=== PATIENT | female | born 1935 | race Caucasian/White ===

== ENCOUNTER 2017-09-19 15:00 | Outpatient (RCR) | payer MEDICARE, SELFPAY | END 2017-09-26 | LOC: PT 15:00 | PROVIDERS: PCP Internal Medicine; Visit Provider Internal Medicine | DX: M54.2 Cervicalgia (principal); M79.601 Pain in right arm | CPT/HCPCS: G8978; G8979; G8980; 97010; 97012; 97014; 97035; 97110; 97162; G0283 ==

== ENCOUNTER → 2017-12-15 09:49 | Outpatient (POV) | payer MEDICARE, SELFPAY | PROVIDERS: Family Provider Internal Medicine; PCP Internal Medicine; Visit Provider Specialist | DX: M79.641 Pain in right hand (principal); M79.601 Pain in right arm | CPT/HCPCS: 95886; 95908 ==

== ENCOUNTER → 2018-05-25 14:41 | Outpatient (POV) | payer MEDICARE, SELFPAY | PROVIDERS: Visit Provider Nurse Practitioner Acute Care | DX: Z00.00 Encounter for general adult medical examination without abnormal findings (principal) ==

== ENCOUNTER → 2018-08-31 13:57 | Outpatient (POV) | payer MEDICARE, SELFPAY | PROVIDERS: Visit Provider Nurse Practitioner Acute Care | DX: Z00.00 Encounter for general adult medical examination without abnormal findings (principal) ==

== ENCOUNTER → 2018-09-07 13:38 | Outpatient (CLI) | payer MEDICARE, SELFPAY ==
--- NOTE | 2018-09-07 13:40 | MR_ITS ---
MR cervical spine wo con, MR 3-d myelogram/MRCP HISTORY: PT states neck pain, RT arm pain, numbness and tingling X 2-3 Months. PT also states back pain. ITS.REASON: NECK PAIN, BACK PAIN ORDERING PHYSICIAN: Kimani Jensen PATIENT AGE: 82 years Comparison: X-RAY 08/25/17 TECHNIQUE: Standard multiplanar multiecho sequences are performed without contrast. 3-D MIP and myelographic images are also rendered and reviewed FINDINGS: Nonspecific increased T2 signal is present in the ijeoma and midbrain and may be related to ischemic gliotic change from microvascular disease. MRI of the brain made for further evaluation if clinically warranted. The craniocervical junction has an unremarkable appearance. There is slight reversal of the upper cervical lordosis. C2-C3: Unremarkable. C3-C4: Degenerative disc disease with mild anterolisthesis of C3 of 3 mm with bulging disc slightly eccentric toward the left with mild left lateral recess narrowing with mild bilateral foraminal narrowing. C4-C5: Degenerative disc disease with bulging disc abutting the anterior aspect of the cord with very minimal cord flattening anteriorly. Anterior bulging discs/disc osteophyte complex also noted. There is mild narrowing of the canal is 11 mm with mild bilateral foraminal narrowing C5-C6: Degenerative disc disease with mild bulging disc. Mild bilateral foraminal narrowing C6-C7: Degenerative disc disease with mild bulging disc and a small left paracentral disc protrusion and minimal right paracentral/foraminal. Disc protrusion without impingement. C7-T1: Mild degenerative disc disease. IMPRESSION: 1. Multilevel cervical spondylosis with degenerative disc disease and bulging discs. Please above for detailed description at each level. Borderline narrowing of the canal noted at C4-C5 with minimal anterior flattening of the cord from the bulging disc 2. C3-C4: Degenerative disc disease with mild anterolisthesis of C3 of 3 mm with bulging disc slightly eccentric toward the left with mild left lateral recess narrowing with mild bilateral foraminal narrowing. 3. C4-C5: Degenerative disc disease with bulging disc abutting the anterior aspect of the cord with very minimal cord flattening anteriorly. Anterior bulging discs/disc osteophyte complex also noted. There is mild narrowing of the canal at 11 mm with mild bilateral foraminal narrowing 4. C6-C7: Degenerative disc disease with mild bulging disc and a small left paracentral disc protrusion and minimal right paracentral/foraminal. Disc protrusion without impingement 5. Suspect ischemic gliotic change of the ijeoma and midbrain IMPRESSION:
== END ==
PROVIDERS: PCP Internal Medicine; Visit Provider Internal Medicine
DX: M54.2 Cervicalgia (principal); M54.5 Low back pain
CPT/HCPCS: 72141; 76376

== ENCOUNTER → 2019-02-02 14:57 | Outpatient (CLI) | payer MEDICARE, SELFPAY ==
--- NOTE | 2019-02-02 15:02 | CT_ITS ---
CT head/brain wo con HISTORY: ITS.REASON: DIZZINESS, SEGAL ORDERING PHYSICIAN: Kimani Jensen PATIENT AGE: 83 years COMPARISON: None TECHNIQUE: Axial images obtained without contrast. Brain and bone windows reviewed. All CT scans at the facility use one or more dose reduction, viz: automated exposure control, ma/kV adjustment per patient size (including targeted exams where dose is matched to indication, i.e. head), or iterative reconstruction technique. FINDINGS: No midline shift, mass effect, intracranial hemorrhage, hydrocephalus, or extra-axial fluid collection is evident. There is mild generalized atrophy. There are low-density changes in the periventricular regions and within the ijeoma consistent with ischemic gliotic change from microvascular disease. There is ectasia of the right carotid artery with some lobulation at the bifurcation of the carotid. A small aneurysm here cannot be excluded. This measures approximately 7 x 5 mm. This now represent tortuosity and ectasia of the carotid bifurcation is well. The calvarium has an unremarkable appearance. No mastoid effusion. No sinus air-fluid levels.. IMPRESSION: 1. No acute intracranial findings. 2. Mild atrophy with periventricular ischemic and pontine ischemic gliotic change 3. Possible aneurysm of the bifurcation of the right carotid artery. CT angiography may be of further value if the patient's renal status permits. An alternative would be MR angiography if the patient is MRI compatible
== END ==
PROVIDERS: PCP Internal Medicine; Visit Provider Internal Medicine
DX: R51 Headache (principal); R42 Dizziness and giddiness
CPT/HCPCS: 70450

== ENCOUNTER → 2019-02-15 09:25 | Outpatient (CLI) | payer MEDICARE, SELFPAY ==
--- NOTE | 2019-02-15 09:36 | CT_ITS ---
CT angio neck INDICATION: Possible aneurysm, abnormal head CT ITS.REASON: DIZZINES, VISION LOSS ORDERING PHYSICIAN: Kimani Jensen PATIENT AGE: 83 years COMPARISON: None TECHNIQUE: Axial images are obtained without contrast. Sagittal and coronal reformatted images are reviewed as well. All CT scans at the facility use one or more dose reduction, viz: automated exposure control, ma/kV adjustment per patient size (including targeted exams where dose is matched to indication, i.e. head), or iterative reconstruction technique. FINDINGS: 11 mm isodense nodule involves the left lobe of the thyroid gland with other smaller nodules also noted. There appears to been a prior right thyroidectomy The aortic arch is an unremarkable appearance. Coronary artery calcifications are present. Tortuosity of the great vessels but no significant stenosis evident. The right internal carotid artery is located anterior to the central aspect of the cervical spine within the central aspect of the retropharynx the left internal carotid artery is also deviated medially but not quite as central as the right side. No stenotic lesions are evident. There is some mild dilatation and of the cavernous and suprasellar portion portion of the right internal carotid artery with some mild tortuosity of the suprasellar portion accounting for the abnormality noted on the CT scan.. No focal aneurysm however is evident. The vertebral arteries have an unremarkable appearance. Upper gastric images show scattered groundglass patchy density in the upper lobes nonspecific. There are degenerative changes of the cervical spine. IMPRESSION: 1. No evidence of significant stenosis of the carotid arteries. 2. 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 3. No aneurysms AVMs or other significant anomalies evident
--- NOTE | 2019-02-15 09:36 | CT_ITS ---
CT angio head INDICATION: Possible aneurysm noted on recent CT scan ITS.REASON: DIZZINES, VISION LOSS ORDERING PHYSICIAN: Kimani Jensen PATIENT AGE: 83 years COMPARISON: None TECHNIQUE: Axial images are obtained following the intravenous administration of 100 mL's Optiray 350 contrast. Sagittal and coronal reformatted images are reviewed as well. All CT scans at the facility use one or more dose reduction, viz: automated exposure control, ma/kV adjustment per patient size (including targeted exams where dose is matched to indication, i.e. head), or iterative reconstruction technique. FINDINGS: No aneurysm, arteriovenous malformation, or major intracranial occlusive process is evident. There is persistent origin of the right posterior cerebral artery as a normal variant. There is minimal ectasia and tortuosity of the cavernous and suprasellar portion of the right internal carotid artery accounting for the abnormality noted on CT scan. No aneurysm however is evident. IMPRESSION: Negative CT angiogram of the brain. No aneurysm apparent
[2019-02-15 09:44] LABS: Blood Urea Nitrogen 8 mg/dL (7-18); Creatinine,Serum 0.79 mg/dL (0.55-1.02); Estimated Glomerular Filt Rate 70 ml/min (>60); GFR (African American) 85 ML/MIN (>60)
== END ==
PROVIDERS: Visit Provider Internal Medicine
DX: R42 Dizziness and giddiness (principal); H54.7 Unspecified visual loss
CPT/HCPCS: 36415; 70496; 70498; 82565; 84520; Q9967

== ENCOUNTER → 2019-06-25 15:20 | Outpatient (CLI) | payer MEDICARE, SELFPAY ==
--- NOTE | 2019-06-25 15:34 | XR_ITS ---
PROCEDURE: XR FOREARM RT 2V CLINICAL INDICATION: RT SHOULDER PAIN,RT ARM PAIN COMPARISON: XR HUMERUS RT from 06/25/2019 FINDINGS: Osteoarthritic changes are present at the radial scaphoid joint. There is chondrocalcinosis of the triangular fibrocartilage of the wrist. Periarticular calcification is present along the dorsal aspect of the radiocarpal joint and along the anterior aspect of the hamate and anterior to the scaphoid. Hypertrophic changes are present along the neck of the radius with osteoarthritic changes of the elbow joint. Subarticular cystic changes are present at the humeral head with cortical regularity of the greater tuberosity. These findings may be seen with rotator cuff disease. No acute fracture or dislocation. No lytic or blastic change. IMPRESSION: Degenerative changes as described above Dictated by: Malik Doshi MD 06/25/2019 16:18 Electronically signed by Malik Doshi MD in [place] 06/25/2019 16:18
--- NOTE | 2019-06-25 15:34 | XR_ITS ---
PROCEDURE: XR SHOULDER RT MIN 2V CLINICAL INDICATION: RT SHOULDER PAIN,RT ARM PAIN COMPARISON: No exams were available for comparison FINDINGS: There are osteoarthritic changes of the acromioclavicular joint with periarticular calcification superiorly and may be due to partially calcified pannus. Subarticular cystic changes are present involving the humeral head with irregularity of the greater tuberosity. This may be seen with chronic rotator cuff disease. No fracture or dislocation. No lytic or blastic changes. IMPRESSION: Degenerative changes as described above, no acute finding Dictated by: Malik Doshi MD 06/25/2019 16:19 Electronically signed by Malik Doshi MD in [facility] 06/25/2019 16:19
== END ==
PROVIDERS: PCP Internal Medicine; Visit Provider Internal Medicine
DX: M25.511 Pain in right shoulder (principal); M79.601 Pain in right arm
CPT/HCPCS: 73030; 73060; 73090

== ENCOUNTER → 2019-07-26 11:45 | Outpatient (CLI) | payer MEDICARE, SELFPAY ==
--- NOTE | 2019-07-26 12:11 | XR_ITS ---
PROCEDURE: XR CHEST 2V CLINICAL HISTORY: DYPSNEA ON EXCERTION, Hemoptysis COMPARISON: CXR CHEST(2 VIEWS-NOT PORTABLE) from 11/17/2015 CXR2 CHEST-AP VIEW ONLY from 02/20/2016 FINDINGS: The cardiomediastinal silhouette and pulmonary vascularity are within normal limits. Calcified nodes are present in the mediastinum. Lungs are clear Degenerative change thoracic spine with lower thoracic curvature convex left in thoracic kyphosis. Postsurgical changes lumbar spine. IMPRESSION: No change with no acute finding Dictated by: Malik Doshi MD 07/26/2019 12:32 Electronically signed by Malik Doshi MD in [place] 07/26/2019 12:32
== END ==
PROVIDERS: PCP Internal Medicine; Visit Provider Internal Medicine
DX: R06.09 Other forms of dyspnea (principal); R04.2 Hemoptysis
CPT/HCPCS: 71046

== ENCOUNTER → 2019-08-10 12:09 | Outpatient (CLI) | payer MEDICARE, SELFPAY ==
--- NOTE | 2019-08-10 12:18 | XR_ITS ---
PROCEDURE: XR SHOULDER RT MIN 2V CLINICAL INDICATION: grashy, axillary, supraspinatus views Right shoulder pain COMPARISON: XR SHOULDER RT MIN 2V from 06/25/2019 FINDINGS: Osteoarthritic changes are present at the acromioclavicular joint with periarticular calcification superiorly. There are mild osteoarthritic changes of the glenohumeral joint with lucencies in the humeral head suggesting subarticular cysts. There is minimal calcification along the lateral aspect of the humeral head which may be related to calcific tendinitis. No fracture or dislocation. IMPRESSION: 1. 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 2. Calcific tendinitis with subarticular cystic changes of the humeral head Dictated by: Malik Doshi MD 08/11/2019 07:11 Electronically signed by Malik Doshi MD in [place] 08/11/2019 07:11
== END ==
PROVIDERS: PCP Internal Medicine; Visit Provider Orthopaedic Surgery
DX: M25.511 Pain in right shoulder (principal)
CPT/HCPCS: 73030

== ENCOUNTER 2020-11-04 10:23 | Emergency (ER) | payer MEDICARE, SELFPAY ==
[2020-11-04 10:30] VITALS: BP 125/68; PULSE 89; RESP 20; TEMP 36.6; O2SAT 100; O2SAT 98; BMI 31.3
--- NOTE | 2020-11-04 11:01 | HMH.EDUTC ---
[facility] [place] Clinical Impression: Inguinal abscess Disposition: Home, Self-Care Condition on Discharge: Good Instructions: DI for Skin Abscess Additional Instructions: Warm compresses. Return to [facility] or to Dr Jensen if not improving. Prescriptions: Sulfamethoxazole/Trimethoprim [Bactrim DS tablet] 1 each PO BID 10 Days #20 tab Transmission Status: Received by [id number] Referrals: Kimani Jensen [Primary Care Provider] - Time of Disposition: 11:10 Medical Decision Making - Stefan Inquiry Pt receiving controlled substance: No Vital Signs: 11/04/20 10:30 Temperature 97.8 F Temperature Source Oral Pulse Rate [Left Brachial] 89 Respiratory Rate 20 Blood Pressure [Left Arm] 125/68 Blood Pressure Mean [Left Arm] 87 Blood Pressure Source [Left Arm] Automatic Cuff Blood Pressure Position [Left Arm] Sitting 02 Sat by Pulse Oximetry 98 Oxygen Delivery Method Room Air [facility] [place] HPI - General Stated complaint: sore on groin Time Seen by Provider: 11/04/20 11:01 Mode of Arrival: Ambulatory Source of Information: Patient Limitations: No Limitations Description of Symptoms (Recalled from Triage Doc. by RN): PATIENT C/O SMALL RED, RAISED AREA TO LEFT GROIN/LABIA AREA. SHE STATES THE PLACE HAS BEEN THERE FOR A WHILE, BUT LAST EVENING IT STARTED SWELLING AND BECAME PAINFUL HEENT Symptoms (Recalled from RN notes): No Resp Symptoms (Recalled from RN notes): No Skin Symptoms (Recalled from RN notes): Yes MS Symptoms (Recalled from RN notes): No Functional Status (Recalled from RN notes): WNL - History of Present Illness Provider Complaint: Patient has had a small area on her left inguinal area for quite some time, but last night it got red, raised and sore. It is hot and hard. No drainage noted. No fever or malaise. Onset (ago): day(s) (1) Location: genitals Radiation: non-radiation Relieving factors: none Exacerbating factors: none Associated symptoms: denies other symptoms Treatments prior to arrival: none - Related Data Home Medications Medication Instructions Recorded Confirmed aspirin 81 mg tablet,delayed 81 mg PO ONCE 05/04/18 03/14/20 release fentanyl 25 mcg/hr transdermal 1 patch TRANSDERMA Q72H 05/04/18 03/14/20 patch gabapentin 300 mg capsule 300 mg PO BID 05/04/18 03/14/20 hydrocodone 10 mg-acetaminophen 1 tab PO Q6H PRN 05/04/18 03/14/20 325 mg tablet losartan 25 mg tablet 25 mg PO ONCE 05/04/18 03/14/20 omeprazole 10 mg capsule,delayed 10 mg PO ONCE 05/04/18 03/14/20 release pravastatin 20 mg tablet 20 mg PO ONCE 05/04/18 03/14/20 Previous Rx's Medication Instructions Recorded acyclovir 800 mg tablet 800 mg PO 5XD 10 Days #50 tab 09/25/19 prednisone 10 mg tablets in a dose See Rx Instructions PO PER PKG DIR 09/25/19 pack #21 tab Sulfamethoxazole/Trimethoprim 1 each PO BID 10 Days #20 tab 11/04/20 [Bactrim DS tablet] Allergies Allergy/AdvReac Type Severity Reaction Status Date / Time ampicillin [AMPICILLIN] Allergy Unknown Verified 03/14/20 10:54 codeine [CODEINE] Allergy Unknown Verified 03/14/20 10:54 flurbiprofen [From ANSAID] Allergy Unknown Verified 03/14/20 10:54 morphine [MORPHINE] Allergy Unknown Verified 03/14/20 10:54 penicillin G [PENICILLIN G] Allergy Unknown Verified 03/14/20 10:54 - Worker's Comp Is this a Worker's Comp case?: No [facility] History - Hepatitis A Screen Drug use history?: No High risk sexual behaviors?: No History of sexually transmitted infection?: No Currently employed?: No Childcare worker?: No Do you have indoor plumbing?: Yes Do you have electricity?: Yes Attestation statement:: This patient has been screened for Hepatitis A risk factors. I have reviewed the patient's past medical history: Yes Medical History: Reports:: Asthma, Gastroesophageal Reflux Disease(GERD), Hyperlipidemia, Hypertension, Lung Disease (asthma, wears o2 @ night 2l), Transient Ischemic Attacks (TIA) Denies:: Diabetes Mellitus Type 1, D
[2020-11-04 11:11] VITALS: BP 125/68; PULSE 89; RESP 20; TEMP 36.6; O2SAT 98
== END 2020-11-04 11:14 | disposition home or self-care (01) ==
LOC: ER 10:33 → UTC 10:34
PROVIDERS: Emergency Provider Physician Assistant; PCP Internal Medicine
DX: L02.214 Cutaneous abscess of groin (principal); K21.9 Gastro-esophageal reflux disease without esophagitis; E78.5 Hyperlipidemia, unspecified; I10 Essential (primary) hypertension; Z88.0 Allergy status to penicillin; Z88.5 Allergy status to narcotic agent; Z79.899 Other long term (current) drug therapy
CPT/HCPCS: G0463; 99202

== ENCOUNTER → 2021-04-09 15:47 | Outpatient (CLI) | payer MEDICARE, SELFPAY ==
[2021-04-09 16:06] LABS: Basophils # 0.1 K/mm3 (0-0.2); Basophils % 0.6 % (0.1-2.0); Eosinophils # 0.2 K/mm3 (0.0-0.4); Eosinophils % 2.1 % (0.1-12.0); Hematocrit 34.5 % (37.0-47.0); Hemoglobin 11.3 g/dL (12.2-16.2); Lymphocytes # 3.3 K/mm3 (0.7-4.5); Mean Corpuscular HGB Conc 32.6 g/dL (31.8-35.4); Mean Corpuscular Hemoglobin 25.3 pg (27.0-31.2); Mean Corpuscular Volume 77.4 fl (81-99); Mean Platelet Volume 7.5 fl (7.4-10.4); Monocytes # 0.5 K/mm3 (0.1-1.0); Monocytes % 5.5 % (1.7-9.3); Neutrophils # 5.5 K/mm3 (1.8-7.8); Neutrophils % 57.7 % (37.0-80.0); Platelet Count 265 K/mm3 (142-424); Red Blood Count 4.46 M/mm3 (4.20-5.40); Red Cell Distribution Width 17.1 % (11.5-17.5); White Blood Count 9.6 K/mm3 (4.8-10.8)
[2021-04-09 16:32] LABS: Hemoglobin A1C 6.5 % (4.0-6.0)
[2021-04-09 17:09] LABS: Erythrocyte Sedimentation Rate 22 mm/hr (0-30)
[2021-04-09 18:02] LABS: Alanine Aminotransferase 12 U/L (12-78); Albumin/Globulin Ratio 1.6 (1.1-1.8); Alkaline Phosphatase 68 U/L (38-126); Anion Gap 13.3 mEq/L (5-15); Aspartate Amino Transferase 19 U/L (14-36); Bilirubin,Total 0.5 mg/dl (0.2-1.3); Blood Urea Nitrogen 15 mg/dl (7-17); Carbon Dioxide 28 mmol/L (22.0-30.0); Chloride 100 mmol/L (98-107); Chol/HDL Ratio 2.4 (1-3.5); Cholesterol 142 mg/dl (140-200); Creatine Kinase 30 U/L (30-135); Estimated Glomerular Filt Rate 80 ml/min (>60); GFR (African American) 97 ML/MIN (>60); Globulin 2.5 g/dL (1.3-3.2); Glucose 100 mg/dl (74-100); HDL Cholesterol 58 mg/dl (40-60); Potassium 4.3 mmoL/L (3.5-5.1); Sodium 137 mmol/L (136-145); Total Protein,Serum 6.5 g/dl (6.3-8.2); Triglycerides 208 mg/dl (30-150); VLDL Cholesterol 42 mg/dL (0-40)
[2021-04-09 18:13] LABS: Direct LDL Cholesterol 59.09 mg/dL (100-129)
== END ==
PROVIDERS: Visit Provider Internal Medicine
DX: I10 Essential (primary) hypertension (principal); E11.42 Type 2 diabetes mellitus with diabetic polyneuropathy; E78.5 Hyperlipidemia, unspecified; E53.8 Deficiency of other specified B group vitamins; M15.0 Primary generalized (osteo)arthritis; D64.9 Anemia, unspecified
CPT/HCPCS: 80053; 80061; 82550; 83036; 85025; 85651

== ENCOUNTER 2021-09-15 04:59 | Emergency (ER) | payer MEDICARE, SELFPAY ==
[2021-09-15 05:15] VITALS: BP 142/85; PULSE 83; RESP 24; TEMP 36.9; O2SAT 96; BMI 31.3
--- NOTE | 2021-09-15 05:17 | ECG_ITS ---
APPROVED REPORT Exam: Resting ECG HR:80 bpm ECG Measurements Heart Rate 80 AXES AR 154 P 56 QRSd 88 QRS 10 QT 388 T 56 QTc 447 Conclusion Normal sinus rhythm Normal ECG Electronically signed by : Nikhil Kim MD 09/15/2021 06:12:08
--- NOTE | 2021-09-15 05:30 | XR_ITS ---
PROCEDURE INFORMATION: Exam: XR Chest Exam date and time: 09/15/2021 5:30 AM Age: 85 years old Clinical indication: Shortness of breath; Additional info: SOA, cough TECHNIQUE: Imaging protocol: XR of the chest. Views: 2 views. COMPARISON: CT ANGIO CHEST PE PROTOCOL 09/15/2021 6:20 AM FINDINGS: Lungs: There is diffuse moderate nonspecific prominence of the pulmonary interstitium.No consolidation. Pleural spaces: Unremarkable. No pleural effusion. No pneumothorax. Heart/Mediastinum: Unremarkable. No cardiomegaly. Bones/joints: There are postoperative and degenerative changes of the spine with note of scoliosis. IMPRESSION: No acute findings.
--- NOTE | 2021-09-15 05:31 | CT_ITS ---
PROCEDURE INFORMATION: Exam: CTA Chest With Contrast Exam date and time: 09/15/2021 5:31 AM Age: 85 years old Clinical indication: Shortness of breath; Additional info: SOA, cough, negative covid TECHNIQUE: Imaging protocol: Computed tomographic angiography of the chest with contrast. 3D rendering (Not supervised by radiologist): MIP and/or 3D reconstructed images were created by the technologist. Radiation optimization: All CT scans at this facility use at least one of these dose optimization techniques: automated exposure control; mA and/or kV adjustment per patient size (includes targeted exams where dose is matched to clinical indication); or iterative reconstruction. Contrast material: ISOVUE; Contrast volume: 100 ml; Contrast route: INTRAVENOUS (IV); COMPARISON: DX XR CHEST 2V 07/26/2019 12:14 PM FINDINGS: Pulmonary arteries: There is no evidence of pulmonary embolism. Aorta: Unremarkable. No aortic aneurysm. No aortic dissection. Thyroid: 1.4 cm low-density nodule left lobe of the thyroid.No follow-up is recommended. Lungs: Unremarkable. No consolidation. No masses. Pleural spaces: Unremarkable. No pneumothorax. No pleural effusion. Heart: Unremarkable. No cardiomegaly. No pericardial effusion. Lymph nodes: Unremarkable. No enlarged lymph nodes. Diaphragm: A large hiatal hernia is present. Gallbladder and bile ducts: There has been a cholecystectomy. Bones/joints: There are postoperative and degenerative changes of the spine. There is scoliosis. Soft tissues: Unremarkable. IMPRESSION: There is no evidence of pulmonary embolism. COMMENTS: Consistent with the [employer]'s Incidental Findings Committee white paper (J Am Amie Radiol 2015): In patients aged 35 years and older with an incidental thyroid nodule equal to or greater than 1.[address], MRI or extrathyroidal US, further evaluation with dedicated thyroid US is recommended for patients with normal life expectancy and without comorbidities. For smaller nodules without suspicious features, no further evaluation or follow up is recommended.
--- NOTE | 2021-09-15 05:42 | HMH.EDSOB ---
ED Disposition Clinical Impression: Bronchitis Reactive airway disease with wheezing Qualifiers: Asthma severity: moderate Asthma persistence: persistent Asthma complication type: with acute exacerbation Qualified Code(s): J45.41 - Moderate persistent asthma with (acute) exacerbation Disposition: Home, Self-Care Condition on Discharge: Good Instructions: DI for Shortness of Breath Additional Instructions: use meds as directed Referrals: Kimani Jensen [Primary Care Provider] - - Critical Care Critical Care Time: No Attestation: On 09/15/21, the high probability of a clinically significant, sudden or life threatening deterioration of the following system(s) required my full and direct attention, intervention and personal management. The time I documented below is in addition to time spent performing reported procedures but includes the following listed in this critical care notation. Medical Decision Making - Medical Records Medical records reviewed: Yes: I reviewed the patient's medical records. - Stefan Inquiry Pt receiving controlled substance: No Vital Signs: 09/15/21 05:15 09/15/21 05:45 Temperature 98.4 F Temperature Source Oral Pulse Rate 76 Pulse Rate [Right Radial] 83 Respiratory Rate 24 Blood Pressure [Right Arm] 142/85 H Blood Pressure Mean [Right Arm] 104 Blood Pressure Source [Right Arm] Automatic Cuff Blood Pressure Position [Right Arm] Sitting 02 Sat by Pulse Oximetry 96 Oxygen Delivery Method Room Air Room Air - Lab Data Lab results reviewed: Yes: I reviewed the patient's lab results. Lab Results 09/15/21 05:34: WBC 7.1, RBC 4.02 L, Hgb 9.6 L, Hct 30.2 L, MCV 75.0 L, MCH 23.9 L, MCHC 31.8, RDW 18.5 H, Plt Count 250, MPV 8.0, Neut % (Auto) 67.7, Lymph % (Auto) 25.5, Posey % (Auto) 6.4, Eos % (Auto) 0.2, Baso % (Auto) 0.3, Neut # (Auto) 4.8, Lymph # (Auto) 1.8, Posey # (Auto) 0.5, Eos # (Auto) 0.0, Baso # (Auto) 0.0, ESR 41 H 09/15/21 05:34: Sodium 135 L, Potassium 3.5, Chloride 96 L, Carbon Dioxide 30, Anion Gap 12.5, BUN 12, Creatinine 0.60, Estimated Creat Clear 61, Estimated GFR 95, Est GFR ( Amer) 116, Glucose 84, Calcium 9.3, Total Bilirubin 0.5, Direct Bilirubin 0.2, Conjugated Bilirubin 0.0, Indirect Bilirubin 0.3, Unconjugated Bilirubin 0.3, AST 33, ALT 18, Alkaline Phosphatase 78, Troponin I < 0.01, C-Reactive Protein 3.2, NT-Pro-B Natriuret Pep 567 H, Total Protein 7.5, Albumin 4.5, Procalcitonin 0.052 09/15/21 05:34: Lactate 1.4 09/15/21 05:34: SARS-CoV-2 (PCR) Not detected, Influenza A Untype (PCR) Not detected, Influenza Type B (PCR) Not detected Result diagrams: 09/15/21 05:34 09/15/21 05:34 Orders (Tests/Meds): ED MEDICATIONS Generic Name Dose Route Start Last Admin Trade Name Freq PRN Reason Stop Dose Admin Albuterol Sulfate 2 puffs 09/15/21 08:22 Albuterol-Hfa 90mcg/Puff Inhaler 8gm 10/15/21 08:21 Q6HP PRN Shortness Of Breath Sodium Chloride 3 ml 09/15/21 05:47 Sodium Chloride 3% 15ml Neb 10/15/21 05:46 ONCE PRN INDUCE SPUTUM COLLECTION Discontinued Medications Generic Name Dose Route Start Last Admin Trade Name Freq PRN Reason Stop Dose Admin Furosemide 40 mg 09/15/21 08:19 09/15/21 08:20 Furosemide 40mg/4ml Vial IV 09/15/21 08:20 40 mg ONCE ONE Administration Iopamidol 100 ml 09/15/21 06:25 09/15/21 06:27 Iopamidol-370 (76%);100ml Bottle IV 09/15/21 06:26 100 ml ONCE ONE Administration Methylprednisolone Sodium Succinate 125 mg 09/15/21 05:30 09/15/21 05:38 Methylprednisolone Sod Succ 125mg Vial IV 09/15/21 05:31 125 mg ONCE ONE Administration Miscellaneous 1 unit 09/15/21 08:22 Aerochamber/Optihaler 09/15/21 08:23 ONCE ONE Sodium Chloride 50 ml 09/15/21 06:25 09/15/21 06:27 0.9 % Sodium Chloride 50 Ml Vial IV 09/15/21 06:26 50 ml ONCE ONE Administration ORDERS Category Date Time Status Troponin I Q3H Lab 09/15/21 08:45 Order
[2021-09-15 05:45] VITALS: PULSE 76
[2021-09-15 05:49] LABS: Coronavirus 19, PCR Not Detected (NotDetected); Influenza A, PCR Not Detected (NotDetected); Influenza B, PCR Not Detected (NotDetected)
[2021-09-15 05:53] LABS: Basophils % 0.3 % (0.1-2.0); Eosinophils % 0.2 % (0.1-12.0); Hematocrit 30.2 % (37.0-47.0); Hemoglobin 9.6 g/dL (12.2-16.2); Lymphocytes # 1.8 K/mm3 (0.7-4.5); Lymphocytes % 25.5 % (10-50); Mean Corpuscular HGB Conc 31.8 g/dL (31.8-35.4); Mean Corpuscular Hemoglobin 23.9 pg (27.0-31.2); Monocytes # 0.5 K/mm3 (0.1-1.0); Monocytes % 6.4 % (1.7-9.3); Neutrophils # 4.8 K/mm3 (1.8-7.8); Neutrophils % 67.7 % (37.0-80.0); Platelet Count 250 K/mm3 (142-424); Red Blood Count 4.02 M/mm3 (4.20-5.40); Red Cell Distribution Width 18.5 % (11.5-17.5); White Blood Count 7.1 K/mm3 (4.8-10.8)
[2021-09-15 06:02] LABS: Alanine Aminotransferase 18 U/L (12-78); Albumin Level 4.5 g/dl (3.5-5.0); Alkaline Phosphatase 78 U/L (38-126); Anion Gap 12.5 mEq/L (5-15); Aspartate Amino Transferase 33 U/L (14-36); Bilirubin,Direct 0.2 mg/dl (0.0-0.4); Bilirubin,Indirect 0.3 mg/dL (0.0-0.9); Bilirubin,Total 0.5 mg/dl (0.2-1.3); Bilirubin,Unconjugated 0.3 mg/dL (0.0-1.1); Blood Urea Nitrogen 12 mg/dl (7-17); Calcium 9.3 mg/dl (8.4-10.2); Carbon Dioxide 30 mmol/L (22.0-30.0); Chloride 96 mmol/L (98-107); Creatinine Clearance Estimated 61 mL/min (50-200); Estimated Glomerular Filt Rate 95 ml/min (>60); GFR (African American) 116 ML/MIN (>60); Glucose 84 mg/dl (74-100); Potassium 3.5 mmoL/L (3.5-5.1); Sodium 135 mmol/L (136-145); Total Protein,Serum 7.5 g/dl (6.3-8.2)
[2021-09-15 06:03] LABS: Lactic Acid 1.4 mmol/L (0.7-2.1)
[2021-09-15 06:08] LABS: C-Reactive Protein 3.2 mg/L (0-4)
[2021-09-15 06:17] LABS: NT Pro Brain Natriuretic Pep. 567 pg/mL (0-450)
[2021-09-15 06:18] LABS: Erythrocyte Sedimentation Rate 41 mm/hr (0-30)
[2021-09-15 06:20] LABS: Troponin I < 0.01 ng/ml (0.00-0.034)
[2021-09-15 06:21] LABS: Procalcitonin 0.052 ng/mL (0.0-2.0)
--- NOTE | 2021-09-15 08:20 | PC.NURSE ---
resp at bedside instructing pt on use of inhaler
--- NOTE | 2021-09-15 08:30 | PC.NURSE ---
pt up to bathroom with assist. pt voided 450cc urine
[2021-09-15 08:51] VITALS: BP 132/74; PULSE 68; RESP 18; TEMP 36.6; O2SAT 98
== END 2021-09-15 08:53 | disposition home or self-care (01) ==
PROVIDERS: Emergency Provider Emergency Medicine; PCP Internal Medicine
DX: J20.9 Acute bronchitis, unspecified (principal); J45.41 Moderate persistent asthma with (acute) exacerbation; K21.9 Gastro-esophageal reflux disease without esophagitis; I10 Essential (primary) hypertension; E78.5 Hyperlipidemia, unspecified; Z20.822 Contact with and (suspected) exposure to COVID-19
CPT/HCPCS: 71046; 71275; 80048; 80076; 83605; 83880; 84145; 84484; 85025; 85651; 86140; 87040; 87070; 87205; 93005; 96365; 96375; 99283; C9803; Q9967; U0003; U0005

== ENCOUNTER 2021-11-06 13:08 | Emergency (ER) | payer MEDICARE, SELFPAY ==
[2021-11-06] VITALS (7 sets, daily range): BP systolic 135–161; BP diastolic 55–79; PULSE 64–74; RESP 18; TEMP 36.8; O2SAT 94–98; BMI 29.4; BMI 29.0
--- NOTE | 2021-11-06 13:26 | ECG_ITS ---
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
--- NOTE | 2021-11-06 13:30 | CT_ITS ---
FINAL REPORT CLINICAL HISTORY: EYE DROOPING 3 DAYS AGO, WEAKNESS. COMPARISON: 02/02/2019 FINDINGS: Axial images of the head were obtained without contrast. Coronal reformatted images were also obtained. This study was performed with techniques to keep radiation doses as low as reasonably achievable (ALARA). Individualized dose reduction techniques using automated exposure control or adjustment of mA and/or kV according to the patient's size were employed. There is generalized age-appropriate atrophy. Periventricular low-attenuation areas are seen consistent with moderate chronic ischemic changes. There is no evidence of intracranial hemorrhage or mass. There is no evidence of acute infarct. There is no evidence of shift of the midline structures. No skull abnormality is seen on the bone window images. IMPRESSION: Atrophy and moderate periventricular chronic ischemic changes. No acute intracranial abnormality identified. Reviewed, Interpreted and Dictated by William Rosenbaum III, MD Transcribed by Cheryl Flynn Authenticated by William Rosenbaum III, MD on 11/06/2021 01:49:51 PM [facility]
[2021-11-06 13:31] LABS: POC Glucose,Bedside 94 (70-110)
--- NOTE | 2021-11-06 13:31 | XR_ITS ---
FINAL REPORT CLINICAL HISTORY: generalized weakness COMPARISON: 09/15/2021 FINDINGS: SINGLE VIEW CHEST The heart is normal in size. The mediastinum is unremarkable. There is mild pulmonary vascular congestion, stable. The lungs are otherwise clear. There is no pneumothorax. IMPRESSION: Stable pulmonary vascular congestion.. Reviewed, Interpreted and Dictated by William Rosenbaum III, MD Transcribed by Chreyl Flynn Authenticated by William Rosenbaum III, MD on 11/06/2021 02:24:48 PM [facility]
--- NOTE | 2021-11-06 13:32 | PC.NURSE ---
rad notified of CT order stroke protocol
[2021-11-06 13:50] LABS: Basophils # 0.1 K/mm3 (0-0.2); Basophils % 0.6 % (0.1-2.0); Eosinophils # 0.4 K/mm3 (0.0-0.4); Eosinophils % 4.4 % (0.1-12.0); Hematocrit 27.5 % (37.0-47.0); Hemoglobin 8.4 g/dL (12.2-16.2); Lymphocytes # 3.2 K/mm3 (0.7-4.5); Lymphocytes % 38.7 % (10-50); Mean Corpuscular HGB Conc 30.7 g/dL (31.8-35.4); Mean Corpuscular Hemoglobin 22.3 pg (27.0-31.2); Mean Corpuscular Volume 72.5 fl (81-99); Mean Platelet Volume 8.1 fl (7.4-10.4); Monocytes # 0.5 K/mm3 (0.1-1.0); Monocytes % 5.6 % (1.7-9.3); Neutrophils # 4.2 K/mm3 (1.8-7.8); Neutrophils % 50.7 % (37.0-80.0); Platelet Count 272 K/mm3 (142-424); Red Blood Count 3.79 M/mm3 (4.20-5.40); White Blood Count 8.2 K/mm3 (4.8-10.8)
[2021-11-06 13:54] LABS: INR 0.97 (0.9-1.1)
[2021-11-06 14:01] LABS: Anion Gap 12.1 mEq/L (5-15); Blood Urea Nitrogen 11 mg/dl (7-17); Calcium 9.4 mg/dl (8.4-10.2); Carbon Dioxide 28 mmol/L (22.0-30.0); Chloride 101 mmol/L (98-107); Creatinine Clearance Estimated 55 mL/min (50-200); Estimated Glomerular Filt Rate 118 ml/min (>60); GFR (African American) 142 ML/MIN (>60); Glucose 80 mg/dl (74-100); Potassium 4.1 mmoL/L (3.5-5.1); Sodium 137 mmol/L (136-145)
--- NOTE | 2021-11-06 14:07 | HMH.EDGENADL ---
ED Disposition Clinical Impression: Dizziness Anemia Qualifiers: Anemia type: unspecified type Qualified Code(s): D64.9 - Anemia, unspecified Disposition: Home, Self-Care Condition on Discharge: Good Instructions: DI for Iron Deficiency Anemia-Adult Additional Instructions: Call Dr. Jensen's office tomorrow to make follow-up appointment. He is going to arrange for outpatient iron infusions. Return to the emergency department if symptoms worsen. Referrals: Kimani Jensen [Primary Care Provider] - - Critical Care Critical Care Time: No Attestation: On 11/06/21, the high probability of a clinically significant, sudden or life threatening deterioration of the following system(s) required my full and direct attention, intervention and personal management. The time I documented below is in addition to time spent performing reported procedures but includes the following listed in this critical care notation. Medical Decision Making - Medical Records Medical records reviewed: Yes: I reviewed the patient's medical records. MR Comment: Patient's hemoglobin was 9.6 on September 15. - Stefan Inquiry Pt receiving controlled substance: No Vital Signs: 11/06/21 13:09 11/06/21 14:00 11/06/21 14:30 Temperature 98.2 F Temperature Source Oral Pulse Rate 68 64 Pulse Rate [Right Radial] 71 Respiratory Rate 18 18 95 H Blood Pressure 137/55 L 138/55 L Blood Pressure [Right Arm] 141/79 H Blood Pressure Mean [Right Arm] 99 Blood Pressure Source Automatic Cuff Manual Cuff/ Doppler Blood Pressure Source [Right Arm] Automatic Cuff Blood Pressure Position Sitting Sitting Blood Pressure Position [Right Arm] Sitting 02 Sat by Pulse Oximetry 98 97 94 L Oxygen Delivery Method Room Air Room Air Room Air 11/06/21 15:00 11/06/21 15:30 11/06/21 16:00 Temperature Temperature Source Pulse Rate 73 66 74 Pulse Rate [Right Radial] Respiratory Rate 18 18 18 Blood Pressure 161/63 H 147/72 H 135/62 Blood Pressure [Right Arm] Blood Pressure Mean [Right Arm] Blood Pressure Source Automatic Cuff Manual Cuff/ Palpation Automatic Cuff Blood Pressure Source [Right Arm] Blood Pressure Position Sitting Sitting Sitting Blood Pressure Position [Right Arm] 02 Sat by Pulse Oximetry 96 97 97 Oxygen Delivery Method Room Air Room Air Room Air - Lab Data Lab Results 11/06/21 13:25: POC Glucose 94 11/06/21 13:25: WBC 8.2, RBC 3.79 L, Hgb 8.4 L, Hct 27.5 L, MCV 72.5 L, MCH 22.3 L, MCHC 30.7 L, RDW 21.0 H, Plt Count 272, MPV 8.1, Neut % (Auto) 50.7, Lymph % (Auto) 38.7, [place] % (Auto) 5.6, Eos % (Auto) 4.4, Baso % (Auto) 0.6, Neut # (Auto) 4.2, Lymph # (Auto) 3.2, [place] # (Auto) 0.5, Eos # (Auto) 0.4, Baso # (Auto) 0.1 11/06/21 13:25: PT 11.0, INR 0.97 11/06/21 13:25: Sodium 137, Potassium 4.1, Chloride 101, Carbon Dioxide 28, Anion Gap 12.1, BUN 11, Creatinine 0.50 L, Estimated Creat Clear 55, Estimated GFR 118, Est GFR ( Amer) 142, Glucose 80, Calcium 9.4 11/06/21 14:55: Stool Occult Blood Negative Result diagrams: 11/06/21 13:25 11/06/21 13:25 Orders (Tests/Meds): ED MEDICATIONS Generic Name Dose Route Start Last Admin Trade Name Freq PRN Reason Stop Dose Admin Sodium Chloride 10 ml 11/06/21 13:31 Sodium Chloride 0.9% 10ml Flush Syringe IV 12/06/21 13:30 NEEDED PRN Maintain IV Site - Radiology Data #1 Image(s): Chest Image Reviewed: Yes I have reviewed radiologist's interpretation Procedure(s): XR chest portable Accession Number(s): [id number] cc: William Rosenbaum MD; Kimani Jensen ~ FINAL REPORT CLINICAL HISTORY: generalized weakness COMPARISON: 09/15/2021 FINDINGS: SINGLE VIEW CHEST The heart is normal in size. The mediastinum is unremarkable. There is mild pulmonary vascular congestion, stable. The lungs are otherwise clear. There is no pneumothorax. IMPRESSION: Stable pulmonary vascular congestion.. Reviewed, Interpreted and D
[2021-11-06 15:18] LABS: Occult Blood,Stool Negative (Negative)
--- NOTE | 2021-11-06 15:56 | PC.NURSE ---
Called Dr Stout for consult on patient, was on hold for a bit, staff said he is still in room and would have him call back.
== END 2021-11-06 16:49 | disposition home or self-care (01) ==
PROVIDERS: Emergency Provider Emergency Medicine; PCP Internal Medicine
DX: R42 Dizziness and giddiness (principal); D64.9 Anemia, unspecified; Z86.73 Personal history of transient ischemic attack (TIA), and cerebral infarction without residual deficits
CPT/HCPCS: 70450; 71045; 80048; 82272; 82962; 85025; 85610; 93005; 99283; G0328

== ENCOUNTER 2021-11-14 09:50 | Outpatient (CLI) | payer MEDICARE, SELFPAY ==
[2021-11-14 10:38] VITALS: BP 130/66; PULSE 84; RESP 18; O2SAT 96
[2021-11-14 11:38] VITALS: BP 128/84; PULSE 71; RESP 16
[2021-11-14 12:38] VITALS: BP 125/69; PULSE 74; RESP 16
[2021-11-14 13:40] VITALS: BP 137/72; PULSE 71; RESP 16
== END 2021-11-14 14:15 | disposition home or self-care (01) ==
LOC: INF 09:52
PROVIDERS: PCP Internal Medicine; Visit Provider Internal Medicine
DX: E61.1 Iron deficiency (principal)
CPT/HCPCS: 96365; 96366; J1642; J1756

== ENCOUNTER → 2021-11-30 09:52 | Outpatient (CLI) | payer MEDICARE, SELFPAY ==
[2021-11-30] VITALS (7 sets, daily range): BP systolic 97–130; BP diastolic 49–73; PULSE 65–77; RESP 16; O2SAT 100; BMI 29.0
[2021-11-30 10:52] LABS: Basophils # 0.1 K/mm3 (0-0.2); Basophils % 1.4 % (0.1-2.0); Eosinophils # 0.2 K/mm3 (0.0-0.4); Hematocrit 29.5 % (37.0-47.0); Hemoglobin 9.1 g/dL (12.2-16.2); Lymphocytes # 1.3 K/mm3 (0.7-4.5); Lymphocytes % 31.3 % (10-50); Mean Corpuscular HGB Conc 30.7 g/dL (31.8-35.4); Mean Corpuscular Hemoglobin 23.3 pg (27.0-31.2); Mean Corpuscular Volume 75.7 fl (81-99); Mean Platelet Volume 9.1 fl (7.4-10.4); Monocytes # 0.2 K/mm3 (0.1-1.0); Monocytes % 4.5 % (1.7-9.3); Neutrophils # 2.4 K/mm3 (1.8-7.8); Neutrophils % 58.7 % (37.0-80.0); Platelet Count 283 K/mm3 (142-424); Reticulocyte % (Auto) 4.2 % (0.9-3.2); White Blood Count 4.2 K/mm3 (4.8-10.8)
[2021-11-30 11:02] LABS: Red Cell Distribution Width 25.2 % (11.5-17.5)
== END ==
PROVIDERS: PCP Internal Medicine; Visit Provider Internal Medicine
DX: D50.9 Iron deficiency anemia, unspecified (principal)
CPT/HCPCS: 85025; 85044; 96365; 96366; J1756

== ENCOUNTER → 2022-01-01 16:46 | Outpatient (CLI) | payer MEDICARE, SELFPAY ==
[2022-01-01 17:25] LABS: Basophils # 0.1 K/mm3 (0-0.2); Eosinophils # 0.2 K/mm3 (0.0-0.4); Eosinophils % 3.2 % (0.1-12.0); Hematocrit 34.4 % (37.0-47.0); Hemoglobin 11.2 g/dL (12.2-16.2); Lymphocytes # 2.3 K/mm3 (0.7-4.5); Lymphocytes % 38.5 % (10-50); Mean Corpuscular HGB Conc 32.6 g/dL (31.8-35.4); Mean Corpuscular Hemoglobin 28.1 pg (27.0-31.2); Mean Corpuscular Volume 86.2 fl (81-99); Mean Platelet Volume 8.8 fl (7.4-10.4); Monocytes # 0.3 K/mm3 (0.1-1.0); Neutrophils # 3.1 K/mm3 (1.8-7.8); Neutrophils % 52.3 % (37.0-80.0); Platelet Count 246 K/mm3 (142-424); Red Blood Count 3.99 M/mm3 (4.20-5.40); Red Cell Distribution Width 24.1 % (11.5-17.5); White Blood Count 5.8 K/mm3 (4.8-10.8)
[2022-01-01 17:47] LABS: Hemoglobin A1C 5.3 % (4.0-6.0)
[2022-01-01 17:49] LABS: Alanine Aminotransferase 13 U/L (12-78); Albumin Level 4.1 g/dl (3.5-5.0); Albumin/Globulin Ratio 1.7 (1.1-1.8); Alkaline Phosphatase 58 U/L (38-126); Anion Gap 10.1 mEq/L (5-15); Aspartate Amino Transferase 25 U/L (14-36); Bilirubin,Total 0.3 mg/dl (0.2-1.3); Blood Urea Nitrogen 8 mg/dl (7-17); Calcium 8.8 mg/dl (8.4-10.2); Carbon Dioxide 29 mmol/L (22.0-30.0); Chloride 101 mmol/L (98-107); Chol/HDL Ratio 4.2 (1-3.5); Cholesterol 188 mg/dl (140-200); Estimated Glomerular Filt Rate 95 ml/min (>60); GFR (African American) 115 ML/MIN (>60); Globulin 2.4 g/dL (1.3-3.2); HDL Cholesterol 45 mg/dl (40-60); Potassium 4.1 mmoL/L (3.5-5.1); Sodium 136 mmol/L (136-145); Total Protein,Serum 6.5 g/dl (6.3-8.2); Triglycerides 196 mg/dl (30-150); VLDL Cholesterol 39 mg/dL (0-40)
[2022-01-01 17:55] LABS: Creatinine,Urine Random 199 mg/dL (Not Estab.); Microalbumin/Creatinine Ratio 18.6
[2022-01-01 17:56] LABS: Glucose 39 mg/dl (74-100)
[2022-01-01 18:00] LABS: Direct LDL Cholesterol 97.55 mg/dL (100-129)
== END ==
PROVIDERS: Visit Provider Internal Medicine
DX: E11.42 Type 2 diabetes mellitus with diabetic polyneuropathy (principal); I10 Essential (primary) hypertension; D50.9 Iron deficiency anemia, unspecified; K21.9 Gastro-esophageal reflux disease without esophagitis
CPT/HCPCS: 80053; 80061; 82043; 82570; 83036; 85025

== ENCOUNTER → 2022-02-14 13:26 | Outpatient (CLI) | payer MEDICARE, SELFPAY ==
[2022-02-14 14:10] LABS: Basophils # 0.1 K/mm3 (0-0.2); Basophils % 1.6 % (0.1-2.0); Eosinophils # 0.1 K/mm3 (0.0-0.4); Eosinophils % 1.2 % (0.1-12.0); Hematocrit 40.9 % (37.0-47.0); Hemoglobin 13.5 g/dL (12.2-16.2); Lymphocytes # 3.9 K/mm3 (0.7-4.5); Lymphocytes % 44.2 % (10-50); Mean Corpuscular HGB Conc 32.9 g/dL (31.8-35.4); Mean Corpuscular Hemoglobin 28.8 pg (27.0-31.2); Mean Corpuscular Volume 87.6 fl (81-99); Mean Platelet Volume 7.5 fl (7.4-10.4); Monocytes # 0.5 K/mm3 (0.1-1.0); Monocytes % 5.2 % (1.7-9.3); Neutrophils # 4.2 K/mm3 (1.8-7.8); Neutrophils % 47.8 % (37.0-80.0); Platelet Count 280 K/mm3 (142-424); Red Blood Count 4.67 M/mm3 (4.20-5.40); Red Cell Distribution Width 20.1 % (11.5-17.5); White Blood Count 8.8 K/mm3 (4.8-10.8)
[2022-02-14 14:55] LABS: Iron 97 ug/dL (37-170)
[2022-02-14 15:04] LABS: Total Iron Binding Capacity 345 ug/dL (265-497)
== END ==
PROVIDERS: PCP Internal Medicine; Visit Provider Internal Medicine
DX: D50.9 Iron deficiency anemia, unspecified (principal)
CPT/HCPCS: 36415; 83540; 83550; 85025

== ENCOUNTER → 2022-07-02 12:11 | Outpatient (CLI) | payer MEDICARE, SELFPAY ==
[2022-07-02 13:10] LABS: Basophils # 0.1 K/mm3 (0-0.2); Basophils % 1.3 % (0.1-2.0); Eosinophils # 0.3 K/mm3 (0.0-0.4); Eosinophils % 4.3 % (0.1-12.0); Hematocrit 36.4 % (37.0-47.0); Hemoglobin 11.9 g/dL (12.2-16.2); Lymphocytes % 35.8 % (10-50); Mean Corpuscular HGB Conc 32.8 g/dL (31.8-35.4); Mean Corpuscular Hemoglobin 30.8 pg (27.0-31.2); Mean Platelet Volume 8.2 fl (7.4-10.4); Monocytes # 0.3 K/mm3 (0.1-1.0); Monocytes % 5.2 % (1.7-9.3); Neutrophils % 53.3 % (37.0-80.0); Platelet Count 234 K/mm3 (142-424); Red Blood Count 3.87 M/mm3 (4.20-5.40); Red Cell Distribution Width 13.9 % (11.5-17.5); White Blood Count 5.7 K/mm3 (4.8-10.8)
[2022-07-02 13:29] LABS: Microalbumin/Creatinine Ratio 9.5
[2022-07-02 13:46] LABS: Creatinine,Urine Random 119 mg/dL (Not Estab.)
[2022-07-02 15:20] LABS: Alanine Aminotransferase 12 U/L (12-78); Albumin Level 3.8 g/dl (3.5-5.0); Albumin/Globulin Ratio 1.5 (1.1-1.8); Alkaline Phosphatase 74 U/L (38-126); Anion Gap 13.4 mEq/L (5-15); Aspartate Amino Transferase 24 U/L (14-36); Blood Urea Nitrogen 8 mg/dl (7-17); Calcium 8.6 mg/dl (8.4-10.2); Carbon Dioxide 29 mmol/L (22.0-30.0); Chloride 98 mmol/L (98-107); Chol/HDL Ratio 4.1 (1-3.5); Cholesterol 180 mg/dl (140-200); Estimated Glomerular Filt Rate 80 ml/min (>60); GFR (African American) 96 ML/MIN (>60); Globulin 2.5 g/dL (1.3-3.2); Glucose 95 mg/dl (74-100); HDL Cholesterol 44 mg/dl (40-60); Potassium 4.4 mmoL/L (3.5-5.1); Sodium 136 mmol/L (136-145); Total Protein,Serum 6.3 g/dl (6.3-8.2); Triglycerides 149 mg/dl (30-150); VLDL Cholesterol 30 mg/dL (0-40)
[2022-07-02 15:31] LABS: Direct LDL Cholesterol 103.02 mg/dL (100-129)
[2022-07-02 15:36] LABS: Bilirubin,Total < 0.1 mg/dl (0.2-1.3)
[2022-07-02 16:05] LABS: Hemoglobin A1C 5.8 % (4.0-6.0)
== END ==
PROVIDERS: PCP Internal Medicine; Visit Provider Internal Medicine
DX: E11.42 Type 2 diabetes mellitus with diabetic polyneuropathy (principal); I10 Essential (primary) hypertension; E78.5 Hyperlipidemia, unspecified; D64.9 Anemia, unspecified; E53.8 Deficiency of other specified B group vitamins; M54.17 Radiculopathy, lumbosacral region
CPT/HCPCS: 80053; 80061; 82043; 82570; 83036; 85025

== ENCOUNTER → 2022-07-15 11:01 | Outpatient (CLI) | payer MEDICARE, SELFPAY ==
[2022-07-15 17:44] LABS: Basophils # 0.1 K/mm3 (0-0.2); Basophils % 0.9 % (0.1-2.0); Eosinophils # 0.2 K/mm3 (0.0-0.4); Eosinophils % 2.8 % (0.1-12.0); Hematocrit 39.2 % (37.0-47.0); Hemoglobin 12.7 g/dL (12.2-16.2); Lymphocytes # 1.7 K/mm3 (0.7-4.5); Lymphocytes % 26.9 % (10-50); Mean Corpuscular HGB Conc 32.4 g/dL (31.8-35.4); Mean Corpuscular Hemoglobin 30.2 pg (27.0-31.2); Mean Corpuscular Volume 93.3 fl (81-99); Monocytes # 0.3 K/mm3 (0.1-1.0); Monocytes % 4.5 % (1.7-9.3); Neutrophils # 4.1 K/mm3 (1.8-7.8); Neutrophils % 64.8 % (37.0-80.0); Platelet Count 249 K/mm3 (142-424); Red Cell Distribution Width 13.8 % (11.5-17.5); White Blood Count 6.3 K/mm3 (4.8-10.8)
== END ==
PROVIDERS: PCP Internal Medicine; Visit Provider Internal Medicine
DX: I10 Essential (primary) hypertension (principal); D64.9 Anemia, unspecified
CPT/HCPCS: 85025

== ENCOUNTER → 2022-07-31 15:09 | Outpatient (CLI) | payer MEDICARE, SELFPAY ==
--- NOTE | 2022-07-31 15:15 | XR_ITS ---
FINAL REPORT CLINICAL HISTORY: SEVERE COUGH COMPARISON: 11/06/2021 FINDINGS: Two views of the chest were obtained. The heart size and pulmonary vascularity are within normal limits. The mediastinum is normal. No acute pulmonary abnormality is identified. There is no pneumothorax. There is levoscoliosis and moderate degenerative changes in the thoracic spine. There are postoperative changes near the thoracolumbar junction. IMPRESSION: No active cardiopulmonary disease. Reviewed, Interpreted and Dictated by William Rosenbaum III, MD Transcribed by Elysia Andujar Authenticated and [facility] [place] [place]
== END ==
PROVIDERS: PCP Internal Medicine; Visit Provider Internal Medicine
DX: R05.8 Other specified cough (principal)
CPT/HCPCS: 71046

== ENCOUNTER → 2023-01-01 12:18 | Outpatient (CLI) | payer MEDICARE, SELFPAY ==
[2023-01-01 14:53] LABS: Basophils # 0.1 K/mm3 (0-0.2); Basophils % 0.8 % (0.1-2.0); Eosinophils # 0.3 K/mm3 (0.0-0.4); Hematocrit 39.2 % (37.0-47.0); Hemoglobin 12.4 g/dL (12.2-16.2); Lymphocytes % 31.4 % (10-50); Mean Corpuscular HGB Conc 31.8 g/dL (31.8-35.4); Mean Corpuscular Hemoglobin 28.3 pg (27.0-31.2); Mean Corpuscular Volume 89.3 fl (81-99); Mean Platelet Volume 8.4 fl (7.4-10.4); Monocytes # 0.4 K/mm3 (0.1-1.0); Monocytes % 5.8 % (1.7-9.3); Neutrophils # 3.7 K/mm3 (1.8-7.8); Neutrophils % 57.9 % (37.0-80.0); Platelet Count 226 K/mm3 (142-424); Red Blood Count 4.39 M/mm3 (4.20-5.40); Red Cell Distribution Width 14.8 % (11.5-17.5); White Blood Count 6.5 K/mm3 (4.8-10.8)
[2023-01-01 16:37] LABS: Alanine Aminotransferase 13 U/L (12-78); Albumin Level 4.3 g/dl (3.5-5.0); Albumin/Globulin Ratio 1.7 (1.1-1.8); Alkaline Phosphatase 88 U/L (38-126); Anion Gap 13.3 mEq/L (5-15); Aspartate Amino Transferase 25 U/L (14-36); Bilirubin,Total 0.5 mg/dl (0.2-1.3); Blood Urea Nitrogen 10 mg/dl (7-17); Calcium 8.9 mg/dl (8.4-10.2); Carbon Dioxide 25 mmol/L (22.0-30.0); Chloride 101 mmol/L (98-107); Chol/HDL Ratio 4.3 (1-3.5); Cholesterol 204 mg/dl (140-200); Estimated Glomerular Filt Rate 95 ml/min (>60); GFR (African American) 115 ML/MIN (>60); Globulin 2.5 g/dL (1.3-3.2); Glucose 96 mg/dl (74-100); HDL Cholesterol 48 mg/dl (40-60); Potassium 4.3 mmoL/L (3.5-5.1); Sodium 135 mmol/L (136-145); Total Protein,Serum 6.8 g/dl (6.3-8.2); Triglycerides 152 mg/dl (30-150); VLDL Cholesterol 30 mg/dL (0-40)
[2023-01-01 20:20] LABS: Hemoglobin A1C 6.1 % (4.0-6.0)
== END ==
PROVIDERS: PCP Internal Medicine; Visit Provider Internal Medicine
DX: E11.42 Type 2 diabetes mellitus with diabetic polyneuropathy (principal); I10 Essential (primary) hypertension; E78.5 Hyperlipidemia, unspecified; D64.9 Anemia, unspecified; M15.0 Primary generalized (osteo)arthritis
CPT/HCPCS: 80053; 80061; 83036; 85025

== ENCOUNTER → 2023-03-04 15:15 | Outpatient (CLI) | payer MEDICARE, SELFPAY ==
--- NOTE | 2023-03-04 15:19 | XR_ITS ---
FINAL REPORT CLINICAL HISTORY: LEFT AND RIGHT KNEE PAIN SINCE FALL. BRUISING IN KNEE FINDINGS: LEFT KNEE 3 views of the left knee were obtained. Post arthroplasty changes are present in the left knee. No significant joint effusion is noted. The hardware is unremarkable in appearance. There is no acute fracture or dislocation. Visualized joint spaces are normally aligned. Soft tissues are unremarkable. IMPRESSION: No acute bony abnormality. Reviewed, Interpreted and Dictated by Andi Cook MD Transcribed by Mandy Yang Authenticated and [facility]
--- NOTE | 2023-03-04 15:19 | XR_ITS ---
FINAL REPORT CLINICAL HISTORY: LEFT AND RIGHT KNEE PAIN SINCE FALL. FINDINGS: There is no acute fracture or dislocation. Post arthroplasty changes are present. No significant joint effusion is noted. The hardware is unremarkable in appearance. There is no soft tissue abnormality. IMPRESSION: Post arthroplasty changes are present. No acute abnormality is identified. Reviewed, Interpreted and Dictated by Andi Cook MD Transcribed by Mandy Ynag Authenticated and [facility]
== END ==
PROVIDERS: PCP Internal Medicine; Visit Provider Internal Medicine
DX: M25.561 Pain in right knee (principal); M25.562 Pain in left knee; W19.XXXA Unspecified fall, initial encounter
CPT/HCPCS: 73562

== ENCOUNTER → 2023-06-16 12:44 | Outpatient (POV) | payer MEDICARE, SELFPAY ==
[2023-06-16 13:20] VITALS: BP 147/91; PULSE 77; RESP 18; O2SAT 92; BMI 30.8
--- NOTE | 2023-06-16 13:44 | EXP.PAIN.OV ---
HPI Data of Consult Patient: new to practice Consult date: 06/16/23 Requesting Physician: Arabella Pozo APRN Primary Care Provider: Kimani Jensen MD Consult Narrative Reason for consult: Low back pain, bilateral knee pain, bilateral leg pain History of present illness: Ms. Mills is a 87 year old female who presents today as a new patient. She is a referral from Roly Pozo's office. Today she rates her pain an 8 out of 10. Patient states her pain is all in her low back and legs including her bilateral knees. Patient does state this has been going on for years and progressively worsened over time. Patient does state that she had a significant fall approximately 60+ years ago that did initially start her back pain symptoms. Patient does describe her pain as a constant achy sensation with numbness and tingling into her lower extremities. Patient does state her knee pain is also an aching, throbbing sensation. She has had both knees replaced. Patient does state that she frequently experiences multiple spasms into her calves and feet causing her toes to curl up. Patient states she frequently has to get up in the middle the night and walk around to relieve this pain. Patient does state that frequently standing or walking does make her pain worse and she frequently has to take multiple breaks. Patient does have a history of lower uterine prolapse that she did go to a specialist for. Patient states that due to her age and health history they did not think surgery was beneficial. Patient does state that she did try a pessary device however it caused issues with her bowel movements. Patient does state the added pressure does make her low back pain worse. Patient also states that she feels like she does have a couple of knots behind each of her knees. Patient also states that back in January she did fall and hit on her tailbone which does still have soreness along with her left knee that still has discoloration. Patient has tried [id number] Tylenol and ibuprofen along with heat and ice and topicals with no additional relief. Patient states that in the past she did go see a pain doctor in [place] who did do injections and provided significant improvement. She states over time some of the injections became less effective and that her doctor left the facility and she never really went back. Patient is currently managed with temazepam 30 mg daily, fentanyl 25 mcg patches every 72 hours, gabapentin 300 mg 5 times a day and [place] 10 mg 4 times a day from her primary care provider. Patient denies any side effects from this medication. Patient does state that she has tried physical therapy in the past with minimal improvement. Patient does have a history of multiple back surgeries with hardware in place. Patient does believe that 1 was a cervical fusion. Her Stefan is [phone]. Its been reviewed and appropriate. CC: Arabella Pozo APRN [facility] Disclaimer: The information contained in this section may have been updated after the patient was seen, as this information can be updated by other users. Medical History Mini stroke Vaginal pessary in situ Surgical History History of appendectomy History of back surgery History of knee surgery History of left knee replacement History of rectal fissure History of surgery on arm History of trigger finger Hx of cardiac catheterization Hx of cholecystectomy Hx of elbow surgery Hx of hysterectomy Hx of partial thyroidectomy Social History (Updated 06/16/23 @ 12:53 by Farzaneh Galloway RN) Smoking Status: Never smoker alcohol intake: never substance use type: denies use current occupational status: retired Travel in the last 8 weeks: None caffeine: No Review of Systems Review of Systems Review of systems:: pertinent systems reviewed and negative unless documented below Review
== END ==
PROVIDERS: PCP Internal Medicine; Visit Provider Nurse Practitioner Family
DX: M25.561 Pain in right knee; M25.562 Pain in left knee; G89.4 Chronic pain syndrome; M46.1 Sacroiliitis, not elsewhere classified; M70.61 Trochanteric bursitis, right hip; M70.62 Trochanteric bursitis, left hip; M51.16 Intervertebral disc disorders with radiculopathy, lumbar region
CPT/HCPCS: 99202; G0463

== ENCOUNTER 2023-07-01 12:54 | Day surgery (SDC) | payer MEDICARE, SELFPAY ==
[2023-07-01 13:08] VITALS: BP 129/93; PULSE 78; RESP 18; TEMP 36.7; O2SAT 97; BMI 29.0
--- NOTE | 2023-07-01 13:23 | P.PCN_ITS ---
Procedure Date: 07/01/23 Time: 13:20 Anesthesiologist:: Francisco Sellers CRNA Complications:: None Pre-procedure Diagnosis:: Bilateral sacroiliitis Post-procedure Diagnosis:: Same. Indications for Procedure:: Patient is very pleasant 87-year-old female comes our clinic today for bilateral sacroiliac joint injection. She has extreme point tenderness over the bilateral sacroiliac joints upon examination. She has difficulty transitioning from sitting to standing. Patient has responded very well to this intervention in the past. She rates her pain today 7/10. Procedure Details:: Procedure: Bilateral sacroiliac joint injections under fluoroscopy Informed consent was obtained and the risks and benefits of the procedure were explained to the patient.~ The patient was taken to the procedure room and noninvasive monitors were placed including a noninvasive blood pressure cuff and pulse oximeter.~ The patient was placed prone on the procedure table. Both hips were cleansed using Betadine as a cleansing solution. C-arm fluoroscopy was used to view the right sacroiliac joint.~ The skin and subcutaneous tissues were anesthetized using lidocaine 1.5% and a 25-gauge needle.~ After this, a 22-gauge spinal needle was inserted under fluoroscopic guidance into the inferior aspect of the right sacroiliac joint.~ Omnipaque dye was injected and good spread was seen throughout the joint.~ After this, approximately 5 mL of bupivacaine, 0.25% and Depo-Medrol, 40 mg was incrementally injected into the right sacroiliac joint. We then moved to the left sacroiliac joint.~ The skin and subcutaneous tissues were anesthetized using lidocaine 1.5% and a 25-gauge needle.~ After this, a 22- gauge spinal needle was inserted under fluoroscopic guidance into the inferior aspect of the left sacroiliac joint.~ Omnipaque dye was injected and good spread was seen throughout the joint. After this, approximately 5 mL of bupivacaine, 0.25% and Depo-Medrol, 40 mg was incrementally injected into the left sacroiliac joint.~ The patient tolerated the procedure well with no complications. The patient was observed in the Pain Clinic and then was discharged home neurologically intact. Plan and Disposition:: Patient was discharged without incident.
[2023-07-01 13:28] VITALS: BP 131/76; PULSE 74; RESP 16; O2SAT 97
== END 2023-07-01 13:28 | disposition home or self-care (01) ==
PROVIDERS: PCP Internal Medicine; Visit Provider Nurse Anesthetist, Certified Registered
DX: M46.1 Sacroiliitis, not elsewhere classified (principal)
CPT/HCPCS: 27096; G0260; J1040

== ENCOUNTER → 2023-07-18 12:30 | Outpatient (CLI) | payer MEDICARE, SELFPAY ==
[2023-07-18 14:39] LABS: Basophils % 0.5 % (0.1-2.0); Eosinophils # 0.2 K/mm3 (0.0-0.4); Eosinophils % 2.6 % (0.1-12.0); Hematocrit 39.1 % (37.0-47.0); Hemoglobin 13.1 g/dL (12.2-16.2); Lymphocytes # 2.1 K/mm3 (0.7-4.5); Lymphocytes % 33.2 % (10-50); Mean Corpuscular HGB Conc 33.5 g/dL (31.8-35.4); Mean Corpuscular Hemoglobin 30.7 pg (27.0-31.2); Mean Corpuscular Volume 91.7 fl (81-99); Mean Platelet Volume 8.1 fl (7.4-10.4); Monocytes # 0.3 K/mm3 (0.1-1.0); Monocytes % 4.8 % (1.7-9.3); Neutrophils # 3.7 K/mm3 (1.8-7.8); Neutrophils % 58.9 % (37.0-80.0); Platelet Count 219 K/mm3 (142-424); Red Blood Count 4.26 M/mm3 (4.20-5.40); Red Cell Distribution Width 14.2 % (11.5-17.5); White Blood Count 6.2 K/mm3 (4.8-10.8)
[2023-07-18 14:45] LABS: Creatinine,Urine Random 245 mg/dL (Not Estab.)
[2023-07-18 14:49] LABS: Microalbumin/Creatinine Ratio 12.4
[2023-07-18 15:45] LABS: Alanine Aminotransferase 18 U/L (12-78); Albumin Level 4.2 g/dl (3.5-5.0); Albumin/Globulin Ratio 1.6 (1.1-1.8); Alkaline Phosphatase 87 U/L (38-126); Anion Gap 14.4 mEq/L (5-15); Aspartate Amino Transferase 29 U/L (14-36); Bilirubin,Total 0.5 mg/dl (0.2-1.3); Blood Urea Nitrogen 10 mg/dl (7-17); Calcium 9.1 mg/dl (8.4-10.2); Carbon Dioxide 24 mmol/L (22.0-30.0); Chloride 102 mmol/L (98-107); Chol/HDL Ratio 4.7 (1-3.5); Cholesterol 214 mg/dl (140-200); Estimated Glomerular Filt Rate 95 ml/min (>60); GFR (African American) 115 ML/MIN (>60); Globulin 2.6 g/dL (1.3-3.2); Glucose 107 mg/dl (74-100); HDL Cholesterol 46 mg/dl (40-60); Potassium 4.4 mmoL/L (3.5-5.1); Sodium 136 mmol/L (136-145); Total Protein,Serum 6.8 g/dl (6.3-8.2); Triglycerides 170 mg/dl (30-150); VLDL Cholesterol 34 mg/dL (0-40)
[2023-07-18 15:49] LABS: Hemoglobin A1C 6.1 % (4.0-6.0)
[2023-07-18 15:56] LABS: Direct LDL Cholesterol 120.91 mg/dL (100-129)
== END ==
PROVIDERS: PCP Internal Medicine; Visit Provider Internal Medicine
DX: E11.42 Type 2 diabetes mellitus with diabetic polyneuropathy (principal); D64.9 Anemia, unspecified; M54.17 Radiculopathy, lumbosacral region; M15.0 Primary generalized (osteo)arthritis; E78.5 Hyperlipidemia, unspecified; N81.6 Rectocele; K59.00 Constipation, unspecified
CPT/HCPCS: 80053; 80061; 82043; 82570; 83036; 85025

== ENCOUNTER → 2023-07-25 13:12 | Outpatient (POV) | payer MEDICARE, SELFPAY ==
[2023-07-25 13:53] VITALS: BP 144/78; PULSE 79; RESP 18; O2SAT 95; BMI 29.7
--- NOTE | 2023-08-08 12:29 | EXP.PAIN.SOA ---
[facility] Pain Management SOAP Note Subjective:: Patient is a very pleasant 87-year-old female that comes our clinic today for follow-up visit after receiving bilateral sacroiliac joint injections on 07/01/2023. Patient reports moderate improvement terms of her overall low back pain. Patient's main complaint today is bilateral hip and leg radicular symptoms. Patient rates her pain today 6/10. I discussed in detail with the patient regarding treatment options moving forward. I recommend we start with lumbar MRI to further discern pathology in the lumbar spine. Answered the patient's questions. She wishes to proceed. Objective:: Procedure Details: Right shoulder intra-articular injection Informed consent was obtained risk and benefits of the procedure were explained to the patient. Patient was taken to the procedure room. The right shoulder was prepped using ChloraPrep. A 25-gauge needle was used first anteriorly, laterally, and then posteriorly to inject 10 mL bupivacaine 0.25% and Depo-Medrol 40 mg. Patient tolerated procedure well with no complications. Assessment:: Degenerative disc lumbar spine multilevels. Lumbar radiculopathy. Bilateral sacroiliitis Plan:: We will plan lumbar MRI. Patient will follow-up to review results. We will make a plan for intervention at that time. [facility] Disclaimer: The information contained in this section may have been updated after the patient was seen, as this information can be updated by other users. Medical History Mini stroke Vaginal pessary in situ Surgical History History of appendectomy History of back surgery History of knee surgery History of left knee replacement History of rectal fissure History of surgery on arm History of trigger finger Hx of cardiac catheterization Hx of cholecystectomy Hx of elbow surgery Hx of hysterectomy Hx of partial thyroidectomy Social History Smoking Status: Never smoker alcohol intake: never substance use type: denies use current occupational status: retired Travel in the last 8 weeks: None caffeine: No
== END ==
PROVIDERS: PCP Internal Medicine; Visit Provider Nurse Anesthetist, Certified Registered
DX: M51.16 Intervertebral disc disorders with radiculopathy, lumbar region (principal); M46.1 Sacroiliitis, not elsewhere classified
CPT/HCPCS: 99212; G0463

== ENCOUNTER → 2023-09-05 11:41 | Outpatient (CLI) | payer MEDICARE, SELFPAY ==
--- NOTE | 2023-09-05 11:53 | MR_ITS ---
FINAL REPORT CLINICAL HISTORY: LOW BACK PAIN. PRIOR HX BACK SURGERY COMPARISON: None FINDINGS: Multiplanar MR imaging of the lumbar spine was performed without contrast. On the sagittal T2-weighted images, disc degeneration is seen throughout. The patient has undergone fusion at the L2-3 and L3-4 levels. Endplate degenerative changes are present at several levels. Dextroscoliosis is present. There is no evidence of fracture. Several hemangiomas are identified. The conus has an unremarkable appearance. T11-12: An annular bulge is present with facet osteoarthropathy and osteophytes. There is moderate right and mild left neural foraminal narrowing. T12-L1: An annular bulge is present with facet osteoarthropathy and osteophytes. There is a small right foraminal disc protrusion present, with moderate right and mild left neural foraminal narrowing. L1-2: An annular bulge is present with facet osteoarthropathy. There is moderate bilateral neural foraminal narrowing. L2-3: The patient has undergone fusion at this level. There is moderate bilateral neural foraminal narrowing present. L3-4: The patient has undergone fusion at this level. There is moderate left neural foraminal narrowing. L4-5: An annular bulge is present with facet osteoarthropathy and osteophytes. There is severe bilateral neural foraminal narrowing, right lateral recess stenosis, and moderate canal stenosis with an AP canal diameter of 6 mm. L5-S1: An annular bulge is present with facet osteoarthropathy and osteophytes. There is severe right and moderate left neural foraminal narrowing. IMPRESSION: Prior lumbar fusion from L2-L4 as described. Multilevel degenerative changes present in the lumbar spine, most severe at the L4-5 level. Reviewed, Interpreted and Dictated by William Rosenbaum III, MD Transcribed by Mandy Yang Authenticated and [facility]
== END ==
PROVIDERS: PCP Internal Medicine; Visit Provider Nurse Practitioner Family
DX: M54.50 Low back pain, unspecified (principal)
CPT/HCPCS: 72148; 76376

== ENCOUNTER 2023-09-08 13:41 | Emergency (ER) | payer MEDICARE, SELFPAY ==
[2023-09-08 13:43] VITALS: BP 139/82; PULSE 78; RESP 19; TEMP 36.8; O2SAT 96; BMI 29.6
--- NOTE | 2023-09-08 15:02 | PC.NURSE ---
Dr. Gavin at for pt eval
--- NOTE | 2023-09-08 15:07 | HMH.EDGENADL ---
Discharge Plan Disposition Patient Disposition: Home, Self-Care Prescriptions Prescriptions: No Action Motegrity 2 mg tablet 2 mg PO DIRECTED Linzess 145 mcg capsule 145 mcg PO DIRECTED duloxetine 60 mg capsule,delayed release(DR/EC) 60 mg PO DAILY hydrocodone-acetaminophen 10-325 mg tablet 1 tab PO Q6H PRN (Reason: pain) gabapentin 300 mg capsule 300 mg PO TID losartan 25 mg tablet 12.5 mg PO DAILY aspirin [Adult Low Dose Aspirin] 81 mg tablet,delayed release (DR/EC) 81 mg PO DAILY fentanyl 25 mcg/hr patch 72 hour 1 patch TRANSDERMA Q72H temazepam 30 mg capsule 30 mg PO DAILY albuterol sulfate 0.63 MG/3 ML solution for nebulization 0.63 mg IH Q4HP PRN (Reason: Dyspnea) ropinirole 0.25 mg tablet 0.25 mg PO HS Rx Instructions: administer 1-3 hours before bedtime Referrals Follow up/Referrals: Kimani Jensen MD [Primary Care Provider] - See instructions Activity Restrictions/Add. Instructions Additional Instructions/Restrictions: Please follow-up with your primary care provider. Please return to the emergency department if you develop any new or worsening symptoms or become concerned for your health. Clinical Impressions Clinical Impression: Rectal prolapse, Constipation Discharge ED Provider: Rajesh Gavin Adult HPI General Chief complaint: PAIN Stated complaint: pelvic prolasp no bowel movement Time Seen by Provider: 09/08/23 15:01 History of Present Illness HPI narrative: 87-year-old female history of chronic intermittent rectal prolapse and pelvic floor dysfunction presents with no bowel movement for the last couple of days. She has tried enemas at home without success. She reports that she feels a little more full but does not have significant pain. Related Data Home Medications Medication Instructions Recorded Confirmed aspirin 81 mg tablet,delayed 81 mg PO DAILY thinner 05/04/18 07/25/23 release (Adult Low Dose Aspirin) fentanyl 25 mcg/hr transdermal 1 patch transdermal Q72H Pain 05/04/18 07/25/23 patch gabapentin 300 mg capsule 300 mg PO TID nerve pain 05/04/18 07/25/23 hydrocodone 10 mg-acetaminophen 1 tab PO Q6H PRN pain 05/04/18 07/25/23 325 mg tablet losartan 25 mg tablet 12.5 mg PO DAILY blood pressure 05/04/18 07/25/23 albuterol sulfate 0.63 mg/3 mL 0.63 mg inhalation Q4HP PRN Dyspnea 11/14/21 07/25/23 solution for nebulization duloxetine 60 mg capsule,delayed 60 mg PO DAILY MOOD 02/28/22 07/25/23 release linaclotide 145 mcg capsule 145 mcg PO DIRECTED BOWELS 02/28/22 07/25/23 (Linzess) prucalopride 2 mg tablet 2 mg PO DIRECTED BOWELS 02/28/22 07/25/23 (Motegrity) temazepam 30 mg capsule 30 mg PO DAILY SLEEP 06/05/23 07/25/23 ropinirole 0.25 mg tablet 0.25 mg PO HS . 07/01/23 07/25/23 Allergies Allergy/AdvReac Type Severity Reaction Status Date / Time ampicillin [AMPICILLIN] Allergy Unknown Verified 07/01/23 13:08 codeine [CODEINE] Allergy Unknown Verified 07/01/23 13:08 flurbiprofen [From ANSAID] Allergy Unknown Verified 07/01/23 13:08 morphine [MORPHINE] Allergy Unknown Verified 07/01/23 13:08 penicillin G [PENICILLIN G] Allergy Unknown Verified 07/01/23 13:08 [facility] Disclaimer: The information contained in this section may have been updated after the patient was seen, as this information can be updated by other users. Medical History Mini stroke Vaginal pessary in situ Surgical History History of appendectomy History of back surgery History of knee surgery History of left knee replacement History of rectal fissure History of surgery on arm History of trigger finger Hx of cardiac catheterization Hx of cholecystectomy Hx of elbow surgery Hx of hysterectomy Hx of partial thyroidectomy Social History (Reviewed 07/01/23 @ 13:08 by Belen
[2023-09-08 15:54] VITALS: BP 143/91; PULSE 77; RESP 19; TEMP 36.8; O2SAT 97
== END 2023-09-08 15:54 | disposition home or self-care (01) ==
PROVIDERS: Emergency Provider Emergency Medicine; PCP Internal Medicine
DX: K62.3 Rectal prolapse (principal); K59.00 Constipation, unspecified
CPT/HCPCS: 99283

== ENCOUNTER → 2023-09-11 10:58 | Outpatient (POV) | payer MEDICARE, SELFPAY ==
--- NOTE | 2023-09-11 11:17 | EXP.PAIN.SOA ---
[facility] Pain Management SOAP Note Subjective:: Patient is a pleasant 87-year-old female who presents today for MRI follow-up of her lumbar spine. We are currently treating the patient for degenerative disc disease of lumbar spine multilevels with lumbar radiculopathy symptoms, bilateral sacroiliac. Today she rates her pain a 4 patient denies any new trauma or injury. Patient denies any change to the location or type of pain she experiences. She states she continues to have chronic pain in her low back that does radiate down her bilateral legs with numbness and tingling. She states this is a constant aching, throbbing sensation that is worse in the mornings and does seem to get a little bit better once she gets up and moving and takes her medication. She does state the pain interferes with her ability perform activities of daily living such as cooking and cleaning. She is currently managed with temazepam 30 mg daily, fentanyl 25 mcg patches every 72 hours, gabapentin 300 mg 5 times a day and [place] 10 mg 4 times a day from her primary care provider. Patient denies any side effects from this medication. Patient does use a cane to help with ambulation. Her Stefan has been reviewed and appropriate. Review of Systems: General: No recent weight changes, no fever, no sleep disturbances Respiratory: No cough, no shortness of air, no recurring pulmonary infections Cardiovascular/peripheral vascular: No chest pain, no palpitations, no edema, no shortness of breath Gastrointestinal: No new onset incontinence, normal bowel movements reported Genitourinary: No new onset incontinence Musculoskeletal: Low back pain, leg pain Psychiatric: [Normal mood/affect] Neurological: [Denies weakness in extremities], [denies balance issues] Objective:: Physical Exam: General: Alert and oriented x3, no acute distress, pleasant and cooperative Lungs: Respirations even and unlabored, symmetrical chest expansion Eyes: PERRL Musculoskeletal: Flexion and extension of lumbar [spine] somewhat guarded secondary to pain, [antalgic gait noted] Neurological: Speech clear, no gross sensory deficit FINAL REPORT CLINICAL HISTORY: LOW BACK PAIN. PRIOR HX BACK SURGERY COMPARISON: None FINDINGS: Multiplanar MR imaging of the lumbar spine was performed without contrast. On the sagittal T2-weighted images, disc degeneration is seen throughout. The patient has undergone fusion at the L2-3 and L3-4 levels. Endplate degenerative changes are present at several levels. Dextroscoliosis is present. There is no evidence of fracture. Several hemangiomas are identified. The conus has an unremarkable appearance. T11-12: An annular bulge is present with facet osteoarthropathy and osteophytes. There is moderate right and mild left neural foraminal narrowing. T12-L1: An annular bulge is present with facet osteoarthropathy and osteophytes. There is a small right foraminal disc protrusion present, with moderate right and mild left neural foraminal narrowing. L1-2: An annular bulge is present with facet osteoarthropathy. There is moderate bilateral neural foraminal narrowing. L2-3: The patient has undergone fusion at this level. There is moderate bilateral neural foraminal narrowing present. L3-4: The patient has undergone fusion at this level. There is moderate left neural foraminal narrowing. L4-5: An annular bulge is present with facet osteoarthropathy and osteophytes. There is severe bilateral neural foraminal narrowing, right lateral recess stenosis, and moderate canal stenosis with an AP canal diameter of 6 mm. L5-S1: An annular bulge is present with facet osteoarthropathy and osteophytes. There is severe right and moderate left neural foraminal narrowing. IMPRESSION: Prior lumbar fusion from L2-L4 as described. Multilevel degenerative changes present in the lumbar spine, most severe at the L4-5 level. Reviewed, Interpreted and Dictated by William Rosenbaum III, MD Trans
[2023-09-11 11:33] VITALS: BP 148/79; PULSE 81; RESP 20; O2SAT 94; BMI 29.4
== END ==
PROVIDERS: PCP Internal Medicine; Visit Provider Nurse Practitioner Family
DX: M51.16 Intervertebral disc disorders with radiculopathy, lumbar region (principal); M46.1 Sacroiliitis, not elsewhere classified; M70.61 Trochanteric bursitis, right hip; M70.62 Trochanteric bursitis, left hip; M25.519 Pain in unspecified shoulder; G89.29 Other chronic pain
CPT/HCPCS: 99212; G0463

== ENCOUNTER 2023-10-07 09:48 | Day surgery (SDC) | payer MEDICARE, SELFPAY ==
[2023-10-07 10:03] VITALS: BP 123/79; PULSE 83; RESP 16; O2SAT 94; BMI 29.6
[2023-10-07 10:15] VITALS: BP 130/58; PULSE 79; RESP 18; O2SAT 94
--- NOTE | 2023-10-07 10:18 | EXP.PAIN.PRO ---
Procedure Date: 10/07/23 Time: 10:00 Anesthesiologist:: Francisco Sellers CRNA Complications:: None Pre-procedure Diagnosis:: Degenerative disc lumbar spine multilevels. Lumbar radiculopathy. Post-procedure Diagnosis:: Same. Indications for Procedure:: Patient is a very pleasant 88-year-old female comes our clinic today for lumbar epidural steroid injection at the L4-5 level. Patient reports low back pain as well as bilateral hip and leg radicular symptoms. She rates her pain 7/10. Procedure Details:: Procedure: Lumbar epidural steroid injection under fluoroscopy Informed consent was obtained and the risks and benefits of the procedure were explained to the patient. The patient was taken to the procedure room and noninvasive monitors placed, including noninvasive blood pressure cuff and pulse oximeter. The back was viewed using C-arm Fluoroscopy and prepped using Chloraprep as a cleansing solution and the L4-L5 interspace was palpated. Skin and subcutaneous tissues were anesthetized using lidocaine 1.5% and a 25-gauge needle. After this, an 18-gauge Touhy epidural needle was placed into the L4-L5 interspace and advanced using fluoroscopic guidance and loss of resistance to air until the epidural space was encountered. After confirmation of needle placement in the epidural space, with dye, a solution containing normal saline, 3 mL and Depo-Medrol 80 mg were incrementally injected into the lumbar epidural space. The patient tolerated the procedure well with no complications. The patient was observed in the Pain Clinic and then discharged home neurologically intact. Plan and Disposition:: Patient was discharged out incident.
--- NOTE | 2023-10-07 10:34 | EXP.PAIN.PRO ---
Procedure Date: 10/07/23 Time: 10:00 Anesthesiologist:: Francisco Sellers CRNA Complications:: None Pre-procedure Diagnosis:: DJD bilateral knees. Chronic bilateral knee pain. Post-procedure Diagnosis:: Same. Indications for Procedure:: Patient is a very pleasant 53-year-old female comes our clinic
[2023-10-07 11:43] VITALS: BP 102/75; PULSE 81; RESP 18; O2SAT 92
[2023-10-07] MEDS: methylPREDNISolone ACETATE 80MG/ML VIAL 80 MG (11:43)
[2023-10-07 11:44] VITALS: BP 102/75; PULSE 81; RESP 18; O2SAT 92
== END 2023-10-07 10:15 | disposition home or self-care (01) ==
PROVIDERS: PCP Internal Medicine; Visit Provider Nurse Anesthetist, Certified Registered
DX: M51.16 Intervertebral disc disorders with radiculopathy, lumbar region (principal)
CPT/HCPCS: 62323; J1040

== ENCOUNTER → 2023-10-22 09:25 | Outpatient (POV) | payer MEDICARE, SELFPAY ==
--- NOTE | 2023-10-22 10:19 | EXP.PAIN.SOA ---
[facility] Pain Management SOAP Note Subjective:: Patient is a pleasant 88-year-old female who presents today for follow-up of lumbar epidural steroid injection L4-L5 on 10/07/2023. Currently treating the patient for degenerative disc disease of lumbar spine with lumbar radiculopathy symptoms, bilateral sacroiliitis. Today she rates her pain a 6 out of 10. Patient denies any new trauma or injury. She does state that she had approximately 40 to 50% improvement following that injection and feels like it is still helping some. She states she has been able to increase her activity with decreased pain symptoms and feels overall more functional however she is experiencing worsening pain in and around her low back at the right side and into her right hip. She does describe this as a aching, throbbing sensation with some numbness. She states the pain does interfere with her ability perform activities of daily living such as cooking and cleaning. Patient does also state that she has a prolapsed uterus/bladder and that she believes part of her continued low back pain may be related to this. Patient states that she has not had any surgery and is not planning on but that they did try a pessary device at Dr. Miller's office however it would constantly come out when she was going to the restroom. Patient is currently managed with temazepam 30 mg daily, fentanyl patches 25 mcg every 72 hours, gabapentin 300 mg 5 times a day and [place] 10 mg 4 times a day from her PCP. She denies any side effects. Her Stefan has been reviewed and is appropriate. Review of Systems: General: No recent weight changes, no fever, no sleep disturbances Respiratory: No cough, no shortness of air, no recurring pulmonary infections Cardiovascular/peripheral vascular: No chest pain, no palpitations, no edema, no shortness of breath Gastrointestinal: No new onset incontinence, normal bowel movements reported Genitourinary: No new onset incontinence Musculoskeletal: Low back pain, right hip pain Psychiatric: [Normal mood/affect] Neurological: [Denies weakness in extremities], [denies balance issues] Objective:: Physical Exam: General: Alert and oriented x3, no acute distress, pleasant and cooperative Lungs: Respirations even and unlabored, symmetrical chest expansion Eyes: PERRL Musculoskeletal: Flexion and extension of lumbar [spine] somewhat guarded secondary to pain, [antalgic gait noted] point tenderness along right SI with positive right SI Jordin's, Triny's, Gaenslen's, compression and distraction exam Neurological: Speech clear, no gross sensory deficit Assessment:: Degenerative disc disease of lumbar spine with lumbar radiculopathy symptoms, sacroiliitis Plan:: Patient is experiencing worsening pain in her low back along the right side and into her right hip. Patient did have extreme point tenderness along her right SI and a positive right Jordin's, Triny's, Gaenslen's, compression and distraction exam. I have discussed with the patient that she may benefit from a right SI injection. Patient has had these before and they did provide significant improvement. She states that it was probably 75 to 80% relief and it did last several months. Patient had her last SI injections back in June 2023. Patient will be scheduled for a right SI injection under fluoroscopy. Patient has been instructed to contact the clinic with any concerns before the next appointment. Dr. Singleton has reviewed this note and agrees with this plan of care. This note was dictated using voice recognition software and make contain errors or omissions. [facility] Disclaimer: The information contained in this section may have been updated after the patient was seen, as this information can be updated by other users. Medical History Mini stroke Vaginal pessary in situ Surgical History History of appendectomy History of back surgery History of knee surgery History of left knee replacement History of rectal fissure History of surgery on arm History of trigger finger Hx of cardiac catheterization Hx of cholecystectomy Hx of elbow surgery Hx of hysterectomy Hx of partial thyroidectomy Social History Smoking Status: Never smoker alcohol intake: never substance use type: denies use current occupational status: other Travel in the last 8 weeks: None caffeine: No
[2023-10-22 10:43] VITALS: BP 134/78; PULSE 88; RESP 18; O2SAT 95; BMI 29.6
== END ==
LOC: SC.PAIN 09:26
PROVIDERS: PCP Internal Medicine; Visit Provider Nurse Practitioner Family
DX: M51.16 Intervertebral disc disorders with radiculopathy, lumbar region (principal); M46.1 Sacroiliitis, not elsewhere classified
CPT/HCPCS: 99212; G0463

== ENCOUNTER 2023-11-04 11:01 | Day surgery (SDC) | payer MEDICARE, SELFPAY ==
[2023-11-04 11:35] VITALS: BP 127/73; PULSE 79; RESP 18; TEMP 36.4; O2SAT 94; BMI 29.6
[2023-11-04] MEDS: LIDOCAINE 1% 5ML PF VIAL 5 ML (11:43)
[2023-11-04] MEDS: BUPIVACAINE 0.25% 10ML INJ 25 MG IJ (11:43)
[2023-11-04] MEDS: methylPREDNISolone ACETATE 80MG/ML VIAL 80 MG (11:43)
[2023-11-04 11:50] VITALS: BP 131/74; PULSE 74; RESP 18; O2SAT 94
--- NOTE | 2023-11-04 12:08 | EXP.PAIN.PRO ---
Procedure Date: 11/04/23 Time: 11:35 Anesthesiologist:: Francisco Sellers CRNA Complications:: None Pre-procedure Diagnosis:: Right sacroiliitis Post-procedure Diagnosis:: Same Indications for Procedure:: Patient is a very pleasant 88-year-old female comes to clinic today for right sacroiliac joint injection. Patient has extreme point tenderness over the right sacroiliac joint upon examination. Patient describes having difficulty sitting and/or standing for any length of time. She describes difficulty transitioning from sitting to standing. She rates her pain 8/10. Procedure Details:: Procedure: Left sacroiliac injection under fluoroscopy Informed consent was obtained and the risk and benefits of the procedure were explained to the patient.~ The patient was taken to the procedure room and noninvasive monitors were placed including noninvasive blood pressure cuff and pulse oximeter.~ The patient was placed prone on the procedure table.~ The right hip was cleansed using Betadine as a cleansing solution.~ C-arm fluorosocpy was used to view the right SI joint.~ The skin and subcutaneous tissues were anesthetized using Lidocaine 1.5% and a 25-gauge needle.~ After this, a 22-gauge spinal needle was inserted under fluoroscopic guidance into the inferior aspect of the right SI joint.~ Omnipaque dye was injected and a good spread was seen throughout the joint.~ After this, approximately 5 mL of bupivacaine 0.25% and Depo-Medrol 40 mg was incrementally injected into the sacroiliac joint.~ The patient tolerated the procedure well with no complications.~ The patient was observed in the Pain Clinic for a period of 30-45 minutes, then discharged home neurologically intact.~ Plan and Disposition:: Patient was discharged without incident.
== END 2023-11-04 11:50 | disposition home or self-care (01) ==
PROVIDERS: PCP Internal Medicine; Visit Provider Nurse Anesthetist, Certified Registered
DX: M46.1 Sacroiliitis, not elsewhere classified (principal)
CPT/HCPCS: 27096; G0260; J1040

== ENCOUNTER 2023-11-12 15:06 | Outpatient (CLI) | payer MEDICARE, SELFPAY ==
--- NOTE | 2023-11-12 15:11 | CT_ITS ---
FINAL REPORT CLINICAL HISTORY: TO RULE OUT STROKE/DIZZINESS, GIDDINESS, LOSS OF BALANCE COMPARISON: 11/06/2021 FINDINGS: Axial images of the head were obtained without contrast. Coronal reformatted images were also obtained. This study was performed with techniques to keep radiation doses as low as reasonably achievable (ALARA). Individualized dose reduction techniques using automated exposure control or adjustment of mA and/or kV according to the patient's size were employed. There is generalized age-appropriate atrophy. Periventricular low-attenuation areas are seen consistent with moderate chronic ischemic changes. There is no evidence of intracranial hemorrhage or mass. There is no evidence of acute infarct. 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 There is no evidence of shift of the midline structures. No skull abnormality is seen on the bone window images. IMPRESSION: Atrophy and moderate periventricular chronic ischemic changes. No acute intracranial abnormality identified. Reviewed, Interpreted and Dictated by William Rosenbaum III, MD Transcribed by Monique Brown Authenticated and [facility]
== END 2023-11-12 23:59 ==
LOC: RAD 15:07
PROVIDERS: PCP Internal Medicine; Visit Provider Internal Medicine
DX: R42 Dizziness and giddiness (principal); R26.89 Other abnormalities of gait and mobility
CPT/HCPCS: 70450

== ENCOUNTER 2023-11-21 10:42 | Outpatient (POV) | payer MEDICARE, SELFPAY ==
[2023-11-21 11:06] VITALS: BP 150/71; PULSE 81; RESP 18; O2SAT 94; BMI 29.7
--- NOTE | 2023-11-21 11:39 | A.OFFVIS_ITS ---
[facility] Pain Management SOAP Note Subjective:: Patient is a pleasant 88-year-old female who presents today for follow-up of SI injection on 11/04/2023. We are currently treating the patient for degenerative disc disease of lumbar spine with lumbar radiculopathy symptoms, bilateral sacroiliitis. Today she rates her pain a 6 out of 10. Patient states her pain is all in her lower pelvic area and into her hips. Patient does state that she had at least 50 to 60% improvement following this injection and feels like it is still helping however she is still having pain related to her prolapsed bowel/bladder. Patient feels like this is making some of her pain worse. Patient has been to multiple specialists and states that all of them had different options and due to her age at this time she is just overall dealing with it on a daily basis. Patient is currently managed with temazepam 30 mg daily, fentanyl patches 25 mcg every 72 hours, gabapentin 300 mg 5 times a day and [place] 10 mg 4 times a day from her PCP. She denies any side effects from these medications. Her Stefan has been reviewed and is appropriate. Review of Systems: General: No recent weight changes, no fever, no sleep disturbances Respiratory: No cough, no shortness of air, no recurring pulmonary infections Cardiovascular/peripheral vascular: No chest pain, no palpitations, no edema, no shortness of breath Gastrointestinal: No new onset incontinence, normal bowel movements reported Genitourinary: No new onset incontinence Musculoskeletal: Bilateral hip pain/pressure Psychiatric: [Normal mood/affect] Neurological: [Denies weakness in extremities], [denies balance issues] Objective:: Physical Exam: General: Alert and oriented x3, no acute distress, pleasant and cooperative Lungs: Respirations even and unlabored, symmetrical chest expansion Eyes: PERRL Musculoskeletal: Flexion and extension of lumbar [spine] somewhat guarded secondary to pain, [antalgic gait noted] Neurological: Speech clear, no gross sensory deficit Assessment:: Degenerative disc disease of lumbar spine with lumbar radiculopathy symptoms, bilateral sacroiliitis Plan:: Patient did have significant improvement following her SI injection however is still experiencing pain and pressure related to her prolapse bowel/bladder. I have discussed with patient in future that she may benefit from trying some shake where her spandex like undergarments to help minimize additional movement while she is up walking. We did also discuss possible physical therapy in the future. We will follow-up with this at future visits. Patient will return to clinic in 1 month for reevaluation of symptoms and plan of care. Patient has been instructed to contact the clinic with any concerns before the next appointment. Dr. Singleton has reviewed this note and agrees with this plan of care. This note was dictated using voice recognition software and make contain errors or omissions. [facility] Disclaimer: The information contained in this section may have been updated after the patient was seen, as this information can be updated by other users. Medical History Mini stroke Vaginal pessary in situ Surgical History History of appendectomy History of back surgery History of knee surgery History of left knee replacement History of rectal fissure History of surgery on arm History of trigger finger Hx of cardiac catheterization Hx of cholecystectomy Hx of elbow surgery Hx of hysterectomy Hx of partial thyroidectomy Social History Smoking Status: Never smoker alcohol intake: never substance use type: denies use current occupational status: retired Travel in the last 8 weeks: None caffeine: No
== END 2023-11-21 23:59 ==
LOC: SC.PAIN 10:43
PROVIDERS: PCP Internal Medicine; Visit Provider Nurse Practitioner Family
DX: M51.16 Intervertebral disc disorders with radiculopathy, lumbar region (principal); M46.1 Sacroiliitis, not elsewhere classified
CPT/HCPCS: 99212; G0463

== ENCOUNTER 2023-12-18 10:52 | Outpatient (POV) | payer MEDICARE, SELFPAY ==
[2023-12-18 11:07] VITALS: BP 149/67; PULSE 81; RESP 20; O2SAT 96; BMI 29.7
--- NOTE | 2023-12-18 11:56 | A.OFFVIS_ITS ---
[facility] Pain Management SOAP Note Subjective:: Patient is a pleasant 88-year-old female who presents today for follow-up. We are currently treating the patient for degenerative disc disease of lumbar spine with lumbar radiculopathy symptoms, sacroiliitis. Today she rates her pain an 8 out of 10. Patient denies any new trauma or injury. She does state from our last visit she has continued to have improvement in her overall hip and buttocks pain however her pain is now radiating all the way down into the feet and both legs. She does describe this as a aching, throbbing sensation with numbness and tingling. Patient does state that she feels like she has spasms that make her curl her toes downward. Patient does state the pain interferes with her ability perform activities of daily living such as cooking and cleaning. Patient does also states she continues to believe part of her issues is related to her prolapse. Patient is currently managed with temazepam, fentanyl patches, gabapentin and [place] from her primary care provider. Her Stefan has been reviewed and is appropriate. Patient has also been prescribed compounded cream in the past however she states that she felt like the IcyHot or Biofreeze seem to do better. Review of Systems: General: No recent weight changes, no fever, no sleep disturbances Respiratory: No cough, no shortness of air, no recurring pulmonary infections Cardiovascular/peripheral vascular: No chest pain, no palpitations, no edema, no shortness of breath Gastrointestinal: No new onset incontinence, normal bowel movements reported Genitourinary: No new onset incontinence Musculoskeletal: Low back pain, leg pain Psychiatric: [Normal mood/affect] Neurological: [Denies weakness in extremities], [denies balance issues] Objective:: Physical Exam: General: Alert and oriented x3, no acute distress, pleasant and cooperative Lungs: Respirations even and unlabored, symmetrical chest expansion Eyes: PERRL Musculoskeletal: Flexion and extension of lumbar [spine] somewhat guarded secondary to pain, [antalgic gait noted] Neurological: Speech clear, no gross sensory deficit Assessment:: Degenerative disc disease of lumbar spine with lumbar radiculopathy symptoms, sacroiliitis Plan:: Patient is experiencing worsening pain in her low back with radiating numbness and tingling into her bilateral lower extremities. Patient did have limited ran ge of motion of her lumbar spine during today's visit. I discussed with the patient that I do believe she would benefit from a lumbar epidural steroid injection. Risk and benefits were discussed with the patient and she would like to proceed forward with this plan of care. Patient denies any blood thinners. Patient has tried and failed conservative therapy. We will schedule the patient for an LESI L4-L5 under fluoroscopy. Patient has been instructed to contact the clinic with any concerns before the next appointment. Dr. Singlteon has reviewed this note and agrees with this plan of care. This note was dictated using voice recognition software and make contain errors or omissions. [facility] Disclaimer: The information contained in this section may have been updated after the patient was seen, as this information can be updated by other users. Medical History Mini stroke Vaginal pessary in situ Surgical History History of appendectomy History of back surgery History of knee surgery History of left knee replacement History of rectal fissure History of surgery on arm History of trigger finger Hx of cardiac catheterization Hx of cholecystectomy Hx of elbow surgery Hx of hysterectomy Hx of partial thyroidectomy Social History Smoking Status: Never smoker alcohol intake: never substance use type: denies use current occupational status: other Travel in the last 8 weeks: None caffeine: No
== END 2023-12-18 23:59 ==
LOC: SC.PAIN 10:52
PROVIDERS: PCP Internal Medicine; Visit Provider Nurse Practitioner Family
DX: M51.16 Intervertebral disc disorders with radiculopathy, lumbar region (principal); M46.1 Sacroiliitis, not elsewhere classified
CPT/HCPCS: 99212; G0463

== ENCOUNTER 2023-12-26 15:43 | Outpatient (CLI) | payer MEDICARE, SELFPAY ==
[2023-12-26 15:58] LABS: Basophils # 0.1 K/mm3 (0-0.2); Basophils % 1.2 % (0.1-2.0); Eosinophils # 0.2 K/mm3 (0.0-0.4); Eosinophils % 2.9 % (0.1-12.0); Hematocrit 38.5 % (37.0-47.0); Hemoglobin 12.5 g/dL (12.2-16.2); Lymphocytes # 2.2 K/mm3 (0.7-4.5); Lymphocytes % 31.4 % (10-50); Mean Corpuscular HGB Conc 32.5 g/dL (31.8-35.4); Mean Corpuscular Hemoglobin 30.4 pg (27.0-31.2); Mean Corpuscular Volume 93.6 fl (81-99); Mean Platelet Volume 7.9 fl (7.4-10.4); Monocytes # 0.4 K/mm3 (0.1-1.0); Monocytes % 6.2 % (1.7-9.3); Neutrophils # 4.1 K/mm3 (1.8-7.8); Neutrophils % 58.3 % (37.0-80.0); Platelet Count 266 K/mm3 (142-424); Red Blood Count 4.11 M/mm3 (4.20-5.40); Red Cell Distribution Width 14.5 % (11.5-17.5); White Blood Count 7.1 K/mm3 (4.8-10.8)
[2023-12-26 16:41] LABS: Anion Gap 12.4 mEq/L (5-15); Blood Urea Nitrogen 13 mg/dl (7-17); Calcium 9.7 mg/dl (8.4-10.2); Carbon Dioxide 27 mmol/L (22.0-30.0); Chloride 102 mmol/L (98-107); Estimated Glomerular Filt Rate 95 ml/min (>60); GFR (African American) 115 ML/MIN (>60); Glucose 80 mg/dl (74-100); Magnesium 2.2 mg/dl (1.6-2.3); Potassium 4.4 mmoL/L (3.5-5.1); Sodium 137 mmol/L (136-145)
[2023-12-26 17:13] LABS: Thyroid Stimulating Hormone 0.97 uIU/mL (0.465-4.68)
[2023-12-26 17:32] LABS: Vitamin B12 289 pg/mL (239-931)
[2023-12-31 08:55] LABS: Creatine Kinase 63 U/L (30-135)
== END 2023-12-26 23:59 ==
LOC: LAB.DROPOF 15:44
PROVIDERS: PCP Internal Medicine; Visit Provider Internal Medicine
DX: M62.838 Other muscle spasm (principal); K59.00 Constipation, unspecified; E66.9 Obesity, unspecified; Z68.31 Body mass index [BMI] 31.0-31.9, adult; Z79.899 Other long term (current) drug therapy
CPT/HCPCS: 80048; 82550; 82607; 83735; 84443; 85025; 86140

== ENCOUNTER 2024-01-20 14:11 | Outpatient (CLI) | payer MEDICARE, SELFPAY ==
[2024-01-20 15:03] LABS: Alanine Aminotransferase 17 U/L (12-78); Albumin/Globulin Ratio 1.6 (1.1-1.8); Alkaline Phosphatase 67 U/L (38-126); Anion Gap 11.2 mEq/L (5-15); Aspartate Amino Transferase 24 U/L (14-36); Bilirubin,Total 0.5 mg/dl (0.2-1.3); Blood Urea Nitrogen 15 mg/dl (7-17); Calcium 9.1 mg/dl (8.4-10.2); Carbon Dioxide 27 mmol/L (22.0-30.0); Chloride 102 mmol/L (98-107); Chol/HDL Ratio 3.1 (1-3.5); Cholesterol 156 mg/dl (140-200); Estimated Glomerular Filt Rate 95 ml/min (>60); GFR (African American) 115 ML/MIN (>60); Globulin 2.5 g/dL (1.3-3.2); Glucose 104 mg/dl (74-100); HDL Cholesterol 50 mg/dl (40-60); Potassium 4.2 mmoL/L (3.5-5.1); Sodium 136 mmol/L (136-145); Total Protein,Serum 6.5 g/dl (6.3-8.2); Triglycerides 137 mg/dl (30-150); VLDL Cholesterol 27 mg/dL (0-40)
[2024-01-20 15:15] LABS: Direct LDL Cholesterol 72.56 mg/dL (100-129)
[2024-01-20 17:25] LABS: Hemoglobin A1C 6.3 % (4.0-6.0)
== END 2024-01-20 23:59 | disposition home or self-care (01) ==
LOC: LAB.DROPOF 14:13
PROVIDERS: PCP Internal Medicine; Visit Provider Internal Medicine
DX: E11.42 Type 2 diabetes mellitus with diabetic polyneuropathy (principal); I10 Essential (primary) hypertension; E78.5 Hyperlipidemia, unspecified; M47.22 Other spondylosis with radiculopathy, cervical region; Z79.899 Other long term (current) drug therapy
CPT/HCPCS: 80053; 80061; 83036

== ENCOUNTER 2024-02-05 15:35 | Outpatient (CLI) | payer MEDICARE, SELFPAY ==
[2024-02-05 19:13] LABS: Basophils # 0.1 K/mm3 (0-0.2); Basophils % 0.7 % (0.1-2.0); Eosinophils # 0.1 K/mm3 (0.0-0.4); Eosinophils % 1.7 % (0.1-12.0); Hematocrit 37.2 % (37.0-47.0); Hemoglobin 12.1 g/dL (12.2-16.2); Lymphocytes # 2.3 K/mm3 (0.7-4.5); Lymphocytes % 29.5 % (10-50); Mean Corpuscular HGB Conc 32.4 g/dL (31.8-35.4); Mean Corpuscular Hemoglobin 30.2 pg (27.0-31.2); Mean Corpuscular Volume 93.1 fl (81-99); Mean Platelet Volume 8.5 fl (7.4-10.4); Monocytes # 0.4 K/mm3 (0.1-1.0); Monocytes % 5.4 % (1.7-9.3); Neutrophils # 4.8 K/mm3 (1.8-7.8); Neutrophils % 62.7 % (37.0-80.0); Platelet Count 227 K/mm3 (142-424); Red Cell Distribution Width 15.1 % (11.5-17.5); White Blood Count 7.7 K/mm3 (4.8-10.8)
[2024-02-05 19:41] LABS: Alanine Aminotransferase 18 U/L (12-78); Albumin Level 3.9 g/dl (3.5-5.0); Albumin/Globulin Ratio 1.5 (1.1-1.8); Alkaline Phosphatase 69 U/L (38-126); Anion Gap 11.1 mEq/L (5-15); Aspartate Amino Transferase 25 U/L (14-36); Bilirubin,Total 0.5 mg/dl (0.2-1.3); Blood Urea Nitrogen 12 mg/dl (7-17); Calcium 9.4 mg/dl (8.4-10.2); Carbon Dioxide 27 mmol/L (22.0-30.0); Chloride 102 mmol/L (98-107); Estimated Glomerular Filt Rate 79 ml/min (>60); GFR (African American) 96 ML/MIN (>60); Globulin 2.6 g/dL (1.3-3.2); Glucose 72 mg/dl (74-100); Potassium 4.1 mmoL/L (3.5-5.1); Sodium 136 mmol/L (136-145); Total Protein,Serum 6.5 g/dl (6.3-8.2)
== END 2024-02-05 23:59 | disposition home or self-care (01) ==
LOC: LAB.DROPOF 02-06 15:36
PROVIDERS: PCP Student in an Organized Health Care Education/Training Program; Visit Provider Student in an Organized Health Care Education/Training Program
DX: N39.0 Urinary tract infection, site not specified (principal); R32 Unspecified urinary incontinence; Z79.899 Other long term (current) drug therapy
CPT/HCPCS: 80053; 85025; 87086

== ENCOUNTER 2024-07-19 13:53 | Outpatient (CLI) | payer MEDICARE, SELFPAY ==
[2024-07-19 13:19] LABS: Basophils # 0.1 K/mm3 (0-0.2); Basophils % 0.8 % (0.1-2.0); Eosinophils # 0.2 K/mm3 (0.0-0.4); Eosinophils % 3.1 % (0.1-12.0); Hematocrit 36.7 % (37.0-47.0); Hemoglobin 11.6 g/dL (12.2-16.2); Lymphocytes # 1.5 K/mm3 (0.7-4.5); Lymphocytes % 19.3 % (10-50); Mean Corpuscular HGB Conc 31.6 g/dL (31.8-35.4); Mean Corpuscular Hemoglobin 27.9 pg (27.0-31.2); Mean Platelet Volume 7.9 fl (7.4-10.4); Monocytes # 0.5 K/mm3 (0.1-1.0); Monocytes % 5.8 % (1.7-9.3); Neutrophils # 5.6 K/mm3 (1.8-7.8); Platelet Count 255 K/mm3 (142-424); Red Blood Count 4.17 M/mm3 (4.20-5.40); Red Cell Distribution Width 15.2 % (11.5-17.5); White Blood Count 7.9 K/mm3 (4.8-10.8)
[2024-07-19 13:33] LABS: Alanine Aminotransferase 18 U/L (12-78); Albumin Level 4.2 g/dl (3.5-5.0); Albumin/Globulin Ratio 1.7 (1.1-1.8); Alkaline Phosphatase 70 U/L (38-126); Anion Gap 11.6 mEq/L (5-15); Aspartate Amino Transferase 27 U/L (14-36); Bilirubin,Total 0.6 mg/dl (0.2-1.3); Blood Urea Nitrogen 10 mg/dl (7-17); Calcium 9.1 mg/dl (8.4-10.2); Carbon Dioxide 28 mmol/L (22.0-30.0); Chloride 104 mmol/L (98-107); Chol/HDL Ratio 3.5 (1-3.5); Cholesterol 181 mg/dl (140-200); Estimated Glomerular Filt Rate 79 ml/min (>60); GFR (African American) 96 ML/MIN (>60); Globulin 2.5 g/dL (1.3-3.2); Glucose 110 mg/dl (74-100); HDL Cholesterol 52 mg/dl (40-60); Potassium 4.6 mmoL/L (3.5-5.1); Sodium 139 mmol/L (136-145); Total Protein,Serum 6.7 g/dl (6.3-8.2); Triglycerides 160 mg/dl (30-150); VLDL Cholesterol 32 mg/dL (0-40)
[2024-07-19 13:43] LABS: Direct LDL Cholesterol 98.41 mg/dL (100-129)
[2024-07-19 19:34] LABS: Creatinine,Urine Random < 3 mg/dL (Not Estab.); Microalbumin/Creatinine Ratio 2156.6
[2024-07-19 21:14] LABS: Hemoglobin A1C 6.3 % (4.0-6.0)
== END 2024-07-19 23:59 | disposition home or self-care (01) ==
LOC: LAB.DROPOF 13:54
PROVIDERS: PCP Internal Medicine; Visit Provider Internal Medicine
DX: E11.42 Type 2 diabetes mellitus with diabetic polyneuropathy (principal); I10 Essential (primary) hypertension; E78.5 Hyperlipidemia, unspecified
CPT/HCPCS: 80053; 80061; 82043; 82570; 83036; 85025

== ENCOUNTER 2025-01-24 14:21 | Outpatient (CLI) | payer MEDICARE, SELFPAY ==
[2025-01-24 14:26] LABS: Basophils # 0.1 K/mm3 (0-0.2); Basophils % 0.7 % (0.1-2.0); Eosinophils # 0.2 Kmm3 (0.0-0.4); Eosinophils % 2.2 % (0.1-12.0); Hematocrit 34.6 % (37.0-47.0); Lymphocytes # 1.9 K/mm3 (0.7-4.5); Lymphocytes % 23.1 % (10-50); Mean Corpuscular HGB Conc 31.8 g/dL (31.8-35.4); Mean Corpuscular Hemoglobin 28.4 pg (27.0-31.2); Mean Corpuscular Volume 89.4 fl (81-99); Mean Platelet Volume 9.9 fl (7.4-10.4); Monocytes # 0.5 K/mm3 (0.1-1.0); Monocytes % 6.2 % (1.7-9.3); Neutrophils # 5.4 K/mm3 (1.8-7.8); Neutrophils % 67.6 % (37.0-80.0); Nucleated Red Blood Cells # 0 10^3/uL; Nucleated Red Blood Cells % 0 %; Platelet Count 236 K/mm3 (142-424); Red Blood Count 3.87 M/mm3 (4.20-5.40); Red Cell Distribution Width 14.6 % (11.5-17.5); Red Cell Distribution Width-SD 46.6 fL
[2025-01-24 14:33] LABS: Creatinine,Urine Random 278 mg/dL (Not Estab.)
[2025-01-24 14:36] LABS: Microalbumin/Creatinine Ratio 21.9
[2025-01-24 15:53] LABS: Albumin Level 4.2 g/dl (3.5-5.0); Chloride 100 mmol/L (98-107)
[2025-01-24 15:54] LABS: Potassium 4.7 mmoL/L (3.5-5.1); Sodium 137 mmol/L (136-145)
[2025-01-24 15:56] LABS: Alanine Aminotransferase 17 U/L (12-78); Albumin/Globulin Ratio 1.6 (1.1-1.8); Alkaline Phosphatase 73 U/L (38-126); Anion Gap 12.7 mEq/L (5-15); Aspartate Amino Transferase 29 U/L (14-36); Bilirubin,Total 0.5 mg/dl (0.2-1.3); Blood Urea Nitrogen 8 mg/dl (7-17); Carbon Dioxide 29 mmol/L (22.0-30.0); Estimated Glomerular Filt Rate 79 ml/min (>60); GFR (African American) 96 ML/MIN (>60); Globulin 2.7 g/dL (1.3-3.2); Total Protein,Serum 6.9 g/dl (6.3-8.2)
[2025-01-24 15:57] LABS: Calcium 9.5 mg/dl (8.4-10.2); Chol/HDL Ratio 3.1 (1-3.5); Cholesterol 169 mg/dl (140-200); Glucose 99 mg/dl (74-100); HDL Cholesterol 55 mg/dl (40-60); Triglycerides 160 mg/dl (30-150); VLDL Cholesterol 32 mg/dL (0-40)
[2025-01-24 16:08] LABS: Direct LDL Cholesterol 83.82 mg/dL (100-129)
[2025-01-24 21:14] LABS: Hemoglobin A1C 6.2 % (4.0-6.0)
== END 2025-01-24 23:59 | disposition home or self-care (01) ==
LOC: LAB.DROPOF 14:21
PROVIDERS: PCP Internal Medicine; Visit Provider Internal Medicine
DX: E78.5 Hyperlipidemia, unspecified (principal); E11.42 Type 2 diabetes mellitus with diabetic polyneuropathy; I10 Essential (primary) hypertension; D64.9 Anemia, unspecified
CPT/HCPCS: 80053; 80061; 82043; 82570; 83036; 85025

== ENCOUNTER 2025-08-09 13:29 | Day surgery (SDC) | payer MEDICARE, SELFPAY ==
[2025-08-09 13:36] VITALS: BP 132/77; PULSE 83; RESP 16; O2SAT 95; BMI 29.8
[2025-08-09] MEDS: DEXAMETHASONE 10MG/ML 1ML VIAL 10 MG (13:37)
[2025-08-09 13:44] VITALS: BP 145/89; PULSE 82; RESP 16; O2SAT 92
--- NOTE | 2025-08-09 13:45 | P.PCN_ITS ---
Procedure Date: 08/09/25 Time: 13:30 Anesthesiologist:: Raulito Sellers CRNA Complications:: None Pre-procedure Diagnosis:: Degenerative disc lumbar spine multilevels. Lumbar radiculopathy. Lumbar spondylosis. Multilevel lumbar facet arthropathy. Lumbar postlaminectomy syndrome. Chronic lumbar back pain. Post-procedure Diagnosis:: Same Indications for Procedure:: Patient is a very pleasant 89-year-old female who comes to clinic today for lumbar epidural steroid injection. Patient describes low lumbar back pain that is constant, dull, aching. She also reports bilateral leg radicular symptoms. Patient is status post 3 separate lumbar fusion surgeries. She rates her pain 7 /10. Procedure Details:: Procedure: Lumbar epidural steroid injection under fluoroscopy Informed consent was obtained and the risks and benefits of the procedure were explained to the patient. The patient was taken to the procedure room and noninvasive monitors placed, including noninvasive blood pressure cuff and pulse oximeter. The back was viewed using C-arm Fluoroscopy and prepped using Chloraprep as a cleansing solution and the L5-S1 interspace was palpated. Skin and subcutaneous tissues were anesthetized using lidocaine 1.5% and a 25-gauge needle. After this, an 18-gauge Touhy epidural needle was placed into the L5-S1 interspace and advanced using fluoroscopic guidance and loss of resistance to air until the epidural space was encountered. After confirmation of needle placement in the epidural space, with dye, a solution containing normal saline, 3 mL and dexamethasone 10 mg were incrementally injected into the lumbar epidural space. The patient tolerated the procedure well with no complications. The patient was observed in the Pain Clinic and then discharged home neurologically intact. Plan and Disposition:: Patient was discharged without incident.
[2025-08-09 13:46] VITALS: BP 137/75; PULSE 85; RESP 18; O2SAT 95
[2025-08-09 13:47] VITALS: BP 137/75; PULSE 85; RESP 18; O2SAT 95
== END 2025-08-09 13:44 | disposition home or self-care (01) ==
PROVIDERS: PCP Internal Medicine; Visit Provider Nurse Anesthetist, Certified Registered
DX: M51.16 Intervertebral disc disorders with radiculopathy, lumbar region (principal); M47.26 Other spondylosis with radiculopathy, lumbar region; M96.1 Postlaminectomy syndrome, not elsewhere classified; G89.29 Other chronic pain; K21.9 Gastro-esophageal reflux disease without esophagitis; J45.909 Unspecified asthma, uncomplicated; Z86.73 Personal history of transient ischemic attack (TIA), and cerebral infarction without residual deficits; Z98.890 Other specified postprocedural states; Z88.1 Allergy status to other antibiotic agents; Z88.0 Allergy status to penicillin; Z88.5 Allergy status to narcotic agent; Z88.6 Allergy status to analgesic agent; Z79.51 Long term (current) use of inhaled steroids; Z79.899 Other long term (current) drug therapy
CPT/HCPCS: 62323; J1100

== ENCOUNTER 2025-09-07 12:47 | Emergency (ER) | payer MEDICARE, SELFPAY ==
[2025-09-07] VITALS (7 sets, daily range): BP systolic 132–156; BP diastolic 71–78; PULSE 65–81; RESP 16; TEMP 36.5–36.7; O2SAT 95–99; BMI 31.3
--- NOTE | 2025-09-07 13:30 | PC.NURSE ---
JC Mane at [facility] for pt eval; with nurse as well
[2025-09-07 13:35] LABS: Microscopic, Urine URINE MICROSCOPIC (MICROSCOPIC)
--- NOTE | 2025-09-07 13:36 | CT_ITS ---
FINAL REPORT TECHNIQUE: After the administration of oral and intravenous contrast, axial images were obtained through the abdomen and pelvis by computed tomography. The study was performed with techniques to keep radiation dose as low as reasonably achievable, (ALARA). Individual dose reduction techniques using automated exposure control or adjustment of mA and/or kV according to the patient's size were employed. CLINICAL HISTORY: Lower ABD pain, constipation, hx of rectal prolaps COMPARISON: 08/08/2017 FINDINGS: Abdomen: There is mild scarring at the bases. Large hiatal hernia is identified. The liver parenchyma is homogeneous. The gallbladder is surgically absent. The spleen, pancreas, adrenals and kidneys appear unremarkable. The aorta is normal in caliber. There is no free fluid or adenopathy. Pelvis: The appendix is not identified. The urinary bladder is incompletely distended. There is moderate sigmoid diverticulosis without evidence of diverticulitis. Large amount of stool seen throughout the colon. There is no free fluid or adenopathy. The osseous associated with structures reveal vacuum disc phenomenon at L4-5 and L5-S1. There is also streak artifact associated with fusion from L2-L4. IMPRESSION: Constipation. Moderate sigmoid diverticulosis without evidence of diverticulitis. Reviewed, Interpreted and Dictated by Mitchell Rogers MD Transcribed by Cheryl Flynn Authenticated and [facility]
--- NOTE | 2025-09-07 13:38 | ED_ITS ---
Discharge Plan Disposition Patient Disposition: Home, Self-Care Condition: Good Prescriptions Prescriptions: New magnesium citrate [OneLAX Magnesium Citrate] Solution 100 ml PO HS Qty: 296 0RF No Action furosemide 20 mg tablet 20 mg PO DAILY PRN (Reason: edema) Qty: 30 2RF ropinirole 0.25 mg tablet 0.25 mg PO HS Qty: 14 0RF Rx Instructions: administer 1-3 hours before bedtime aspirin [Adult Low Dose Aspirin] 81 mg tablet,delayed release (DR/EC) 81 mg PO DAILY coenzyme Q10 200 mg capsule 200 mg PO DAILY mecobalamin (vitamin B12) 1,000 mcg tablet,disintegrating 1,000 mcg sublingual DAILY Rx Instructions: place tablet under tongue and allow to dissolve for at least30 secs before swallowing nystatin 100,000 unit/mL suspension See Rx Instructions .ROUTE .COMPLEX Qty: 240 2RF Dose Instruction: SWISH AND SWALLOW OR SPIT 5 ML BY MOUTH 4 TIMES A DAY DIRECTED Rx Instructions: SWISH AND SWALLOW OR SPIT 5 ML BY MOUTH 4 TIMES A DAY DIRECTED lactulose [Constulose] 10 gram/15 mL solution See Rx Instructions .ROUTE .COMPLEX Qty: 450 2RF Dose Instruction: TAKE 15 ML BY MOUTH DAILY NEEDED FOR CONSTIPATION Rx Instructions: TAKE 15 ML BY MOUTH DAILY NEEDED FOR CONSTIPATION temazepam 30 mg capsule 30 mg PO DAILY Qty: 30 2RF mupirocin calcium 2 % cream 1 applic topical TID Qty: 30 1RF Rx Instructions: Apply to sores around nose albuterol sulfate 2.5 mg /3 mL (0.083 %) solution for nebulization 2.5 mg inhalation Q6H Qty: 360 2RF fluconazole [Diflucan] 200 mg tablet 200 mg PO DAILY Qty: 2 1RF losartan 25 mg tablet 25 mg PO DAILY Qty: 90 1RF ondansetron HCl 4 mg tablet 4 mg PO DAILY PRN (Reason: nausea and vomiting) Qty: 30 2RF rosuvastatin 10 mg tablet 10 mg PO DAILY Qty: 90 1RF prucalopride [Motegrity] 2 mg tablet 2 mg PO DIRECTED Qty: 30 5RF gabapentin 300 mg capsule 300 mg PO .COMPLEX Qty: 150 2RF Rx Instructions: 300 mg 1 in the morning, 1 in the afternoon, and 3 at bedtime for nerve pain. lubiprostone 24 mcg capsule 24 mcg PO BID PRN (Reason: constipation) Qty: 60 2RF omeprazole 20 mg capsule,delayed release(DR/EC) 20 mg PO DAILY Qty: 90 1RF hydrocodone-acetaminophen 10-325 mg tablet 1 tab PO Q6H PRN (Reason: pain) Qty: 120 0RF sucralfate 1 gram tablet 1 g PO QID Qty: 270 3RF Rx Instructions: BEFORE MEALS AND AT BEDTIME duloxetine 60 mg capsule,delayed release(DR/EC) 60 mg PO DAILY Qty: 90 1RF fentanyl 25 mcg/hr patch 72 hour 1 patch transdermal Q72H Qty: 10 0RF Trelegy Ellipta 100-62.5-25 mcg blister with device See Rx Instructions .ROUTE .COMPLEX Qty: 60 4RF Dose Instruction: INHALE 1 PUFF BY MOUTH DAILY Rx Instructions: INHALE 1 PUFF BY MOUTH DAILY albuterol sulfate 0.63 MG/3 ML solution for nebulization 0.63 mg IH Q4HP PRN (Reason: Dyspnea) Referrals Follow up/Referrals: Kimani Jensen MD [Primary Care Provider, Medical] - See instructions William Bo MD [Staff Physician, General Surgery] - See instructions Gilda Walls DO [Staff Physician, [employer]ES [employer]PER[employer]] - See instructions Activity Restrictions/Add. Instructions Additional Instructions/Restrictions: Please return to the emergency department with any worsening signs or symptoms. Please utilize bowel regimen as prescribed. Please follow-up with general surgeon and MARKETING SALES SUPERVISOR in the upcoming days/weeks. Clinical Impressions Clinical Impression: Constipation Instructions Patient Instructions: DI for Constipation Print Language Print Language: Malay Discharge ED Provider: Roge Cavazos General Adult HPI <JC Denney - Last Filed: 09/07/25 16:14> General Chief complaint: Nausea/Vomiting/Diarrhea Stated complaint: prolapsed bowel/Rectum per Dr. Jensen Time Seen by Provider: 09/07/25 13:29 Mode of Arrival: Ambulatory Source of Information: Patient Limitations: No Limitations History of Present Illness HPI narrative: 89-year-old female presents the emergency department for a 2-week history of abdominal pain, constipation for the last 3 weeks, patient states she has a history of rectal prolapse , was seen by her PCP, instructed to come to the emergency department for further evaluation of this, patient states this is somewhat chronic for her, has had history of constipation, no diarrhea, admits to subjective fever chills, denies any chest pain shortness of breath, admits to diffuse abdominal pain, nausea, no vomiting, no hematuria melena hematochezia hematemesis or hemoptysis, no urinary symptomatology, patient is a former smoker denies any alcohol or other drug use, other past medical history is consistent with GERD, T2DM, data deficient history of TIA/CVA, chronic pain disorder, ambulates with walker at baseline, history of rectocele/rectal prolapse, hyperlipidemia, hypertension. Initial triage vitals are unremarkable. Please note that above description of symptoms, in this electronic medical record under categorization of recalled from ER triage doctor by RN are reflective of an initial nursing assessment, however, is not reflective of my full history and physical exam that was personally taken and clarified. Consequentially, this preceding description of symptoms, which may include the patient's categorized chief complaint in the EMR, do not reflect my personal clinical impression, and the ultimate description of history of present illness and patient stated complaints should be deferred to this section of the note. Unless stated otherwise or congruent with this section of the note, additional signs, symptoms, or incongruence should be interpreted as inaccurate with my clinical impression. Onset (ago): week(s) Related Data Home Medications ?Medication ?Instructions ?Recorded ?Confirmed aspirin 81 mg tablet,delayed 81 mg PO DAILY thinner 08/29/25 release (Adult Low Dose Aspirin) albuterol sulfate 0.63 mg/3 mL 0.63 mg inhalation Q4HP PRN Dyspnea 11/14/21 08/29/25 solution for nebulization coenzyme Q10 200 mg capsule 200 mg PO DAILY 02/05/24 1 10/30/24 mecobalamin (vitamin B12) 1,000 1,000 mcg sublingual D AILY 02/05/24 08/29/25 mcg disintegrating tablet,sublingual Previous Rx's ?Medication ?Instructions ?Recorded furosemide 20 mg tablet 20 mg PO DAILY PRN edema #30 tabs 05/13/24 mupirocin calcium 2 % topical cream 1 applic topical T ID #30 grams 07/14/24 albuterol sulfate 2.5 mg/3 mL 2.5 mg (3 mL) inhalation Q6H #360 09/03/24 (0.083 %) solution for nebulization mL fluconazole 200 mg tablet 200 mg PO DAILY #2 tabs 08/30 (Diflucan) losartan 25 mg tablet 25 mg PO DAILY blood pressur e #90 04/11/25 tabs ondansetron HCl 4 mg tablet 4 mg PO DAILY PRN nausea a nd 05/27/25 vomiting #30 tabs rosuvastatin 10 mg tablet 10 mg PO DAILY #90 tabs 05/30 gabapentin 300 mg capsule 300 mg PO .COMPLEX #150 caps 06/23/25 prucalopride 2 mg tablet 2 mg PO DIRECTED BOWELS # 30 tabs 06/23/25 (Motegrity) lubiprostone 24 mcg capsule 24 mcg PO BID PRN constipa tion #60 07/07/25 caps lactulose 10 gram/15 mL oral See Rx Instructions .Rout e 07/25/25 solution (Constulose) .COMPLEX #450 mL nystatin 100,000 unit/mL oral See Rx Instructions .Rou te 07/25/25 suspension .COMPLEX #240 mL temazepam 30 mg capsule 30 mg PO DAILY SLEEP #30 cap s 07/25/25 hydrocodone 10 mg-acetaminophen 1 tab PO Q6H PRN pain #120 tabs 08/10/25 325 mg tablet omeprazole 20 mg capsule,delayed 20 mg PO DAILY #90 ca ps 08/10/25 release sucralfate 1 gram tablet 1 g PO QID #270 tabs 5 duloxetine 60 mg capsule,delayed 60 mg PO DAILY MOOD # 90 caps 08/24/25 release fentanyl 25 mcg/hr transdermal 1 patch transdermal Q72 H #10 ea 08/24/25 patch ropinirole 0.25 mg tablet 0.25 mg PO HS #14 tabs 08/29 fluticasone fur. 100 mcg-umeclid See Rx Instructions . Route 09/01/25 62.5 mcg-vilant 25 mcg .COMPLEX #60 ea inhalat.powder (Trelegy Ellipta) magnesium citrate (OneLAX 100 ml PO HS #296 mL 5 Magnesium Citrate oral solution) Allergies Allergy/AdvReac Type Severity Reaction Status Date / Time ampicillin (AMPICILLIN) Allergy Severe Rash Verified 08/29/25 13:38 codeine (CODEINE) Allergy Mild Vomiting Verified 08/29/25 13:38 flurbiprofen (From ANSAID) Allergy Mild Rash Verified 08/29/25 13:38 morphine (MORPHINE) Allergy Mild Vomiting Verified 08/29/25 13:38 penicillin G (PENICILLIN G) Allergy Mild rash, edema Verified 08/29/25 13:38 [facility] <JC Denney - Last Filed: 09/07/25 16:14> [facility] Disclaimer: The information contained in this section may have been updated after the patient was seen, as this information can be updated by other users. Medical History Anemia Dizziness Inguinal abscess Other abnormal clinical finding Weak posterior vaginal wall Reactive airway disease with wheezing Vaginal atrophy Difficult bowel movements Rectocele, female GERD (gastroesophageal reflux disease) TIA (transient ischemic attack) Lumbar radiculopathy Lumbago with right sciatica suspected Degenerative disc disease, lumbar Chronic pain disorder Greater trochanteric bursitis of both hips Rectal prolapse Mini stroke Vaginal pessary in situ Surgical History History of trigger finger History of back surgery History of left knee replacement History of knee surgery History of rectal fissure Hx of partial thyroidectomy Hx of cardiac catheterization Hx of elbow surgery History of surgery on arm Hx of hysterectomy Hx of cholecystectomy History of appendectomy Family History Other No significant family history Social History Smoking Status: Never smoker alcohol intake: never substance use type: denies use current occupational status: other Travel in the last 8 weeks?: None caffeine: No Other Medical History Have you received the Flu Vaccine for this season: No Have you received the Pneumonia Vaccine: No <JC Denney - Last Filed: 09/07/25 16:14> ROS Obtained: Yes All systems reviewed & no additional complaints except as documented Physical Exam <JC Denney - Last Filed: 09/07/25 16:14> General General appearance: alert and in no apparent distress Head Head exam: atraumatic and normocephalic Eye Eye exam: Present PERRL and EOMI ENT ENT exam: Present mucous membranes moist Neck Neck exam: Present normal inspection Chest Chest inspection: Present normal inspection and symmetric chest wall rise Respiratory Respiratory exam: Present normal lung sounds bilaterally; Absent respiratory distress Cardiovascular Cardiovascular exam: Present regular rate and normal rhythm Abdominal Exam Abdominal exam: Present soft, distention and tenderness; Absent guarding, rebound or rigidity Rectal Exam Rectal exam: Present normal inspection; Absent bloody stool, hemorrhoids or mass External exam: Present normal external exam Extremities Exam Extremities exam: Present normal inspection Neurological Exam Neurological exam: Present alert and oriented X3 Psychiatric Psychiatric exam: Present normal affect Skin Skin exam: Present warm and dry Medical Decision Making <JC Denney - Last Filed: 09/07/25 16:14> Medical Records Medical records reviewed: Yes I reviewed the patient's medical records. Screening: Per USPSTF and CDC recommendations, given the prevalence of disease in our region, it is our hospital?s policy to screen for HIV and viral Hepatitis for all patients aged 18 and over and those with ongoing risk factors. Stefan Inquiry Pt receiving controlled substance: No Stefan was queried for this patient: No Vital Signs: 09/07/25 13:37 09/07/25 13:49 09/07/25 14:00 Temperature 97.7 F Temperature Source Oral Pulse Rate 75 72 Pulse Rate [Right Radial] 75 Respiratory Rate 16 Blood Pressure 156/74 H 132/71 Blood Pressure [Right Arm] 156/74 H Blood Pressure Mean 98 Blood Pressure Mean [Right Arm] 101 Blood Pressure Source [Right Arm] Automatic Cuff Blood Pressure Position [Right Arm] Supine 02 Sat by Pulse Oximetry 95 95 96 Oxygen Delivery Method Room Air Room Air Room Air Lab Data Lab results reviewed: Yes I reviewed the patient's lab results. Lab Results 09/07/25 13:29: Urine Color Yellow, Urine Appearance Clear, Urine pH 6.0, Ur Specific [place] 1.010, Urine Protein Negative, Urine Glucose (UA) Negative, Urine Ketones Negative, Urine Blood Negative, Urine Nitrate Negative, Urine Bilirubin Negative, Urine Urobilinogen 0.2, Ur Leukocyte Esterase Negative, Urine RBC None, Urine WBC 3-5, Ur Squamous Epith Cells 5-10, Urine Bacteria Trace 09/07/25 13:44: WBC 6.1, RBC 3.81 L, Hgb 10.6 L, Hct 33.7 L, MCV 88.5, MCH 27.8, MCHC 31.5 L, RDW 14.6, Plt Count 235, MPV 9.8, Neut % (Auto) 56.1, Lymph % (Auto) 31.5, [place] % (Auto) 8.0, Eos % (Auto) 3.4, Baso % (Auto) 0.7, Neut # (Auto) 3.4, Lymph # (Auto) 1.9, [place] # (Auto) 0.5, Eos # (Auto) 0.2, Baso # (Auto) 0.0, Sodium 138, Potassium 4.4, Chloride 100, Carbon Dioxide 26, Anion Gap 16.4 H, BUN 14, Creatinine 0.80, Estimated Creat Clear 57, Estimated GFR 68, Est GFR ( Amer) 82, Glucose 95, Lactate 1.2, Calcium 9.4, Magnesium 2.4 H , Total Bilirubin 0.5, AST 29, ALT 17, Alkaline Phosphatase 79, Total Protein 7.4, Albumin 4.6, Globulin 2.8, Albumin/Globulin Ratio 1.6, Lipase 38 09/07/25 13:44 09/07/25 13:44 Orders (Tests/Meds): ED MEDICATIONS Generic Name Dose Route Start Last Admin Trade Name Freq PRN Reason Stop Dose Admin Sodium Chloride 10 ml 09/07/25 14:42 09/07/25 14:43 Sodium Chloride 0.9% 10ml Syr (Rad Only) IV 10/07/25 14:41 10 ml NEEDED PRN Administration Maintain IV Site Discontinued Medications Generic Name Dose Route Start Last Admin Trade Name Freq PRN Reason Stop Dose Admin Iopamidol 75 ml 09/07/25 14:42 09/07/25 14:43 Iopamidol-370 (76%);100ml Bottle IV 09/07/25 14:43 75 ml ONCE ONE Administration Ondansetron HCl 4 mg 09/07/25 13:37 09/07/25 14:11 Ondansetron 4mg/2ml Vial IV 09/07/25 13:38 4 mg ONCE ONE Administration ORDERS Category Date Time Status CT abdomen pelvis w con Stat Cat Scan 09/07/25 13:36 Completed Complete Blood Count Auto Diff Stat Lab 09/07/25 13:44 Completed Comprehensive Metabolic Panel Stat Lab 09/07/25 13:44 Completed HIV Combo Stat Lab 09/07/25 14:02 Ordered Hepatitis C Ab Qual. W/ RFX Stat Lab 09/07/25 14:02 Ordered Lactic Acid Stat Lab 09/07/25 13:44 Completed Lipase Stat Lab 12/10/25 13:44 Completed Magnesium Stat Lab 09/07/25 13:44 Completed UA [Urinalysis and Microscopic] Stat Lab 09/07/25 13:29 Completed Medical Decision Narrative: 89-year-old female presents the emergency department with concern for rectal prolapse constipation abdominal pain and nausea, worse over the last 2 weeks, Differential diagnose include but not limited to, malignancy, bowel obstruction, constipation, fecal impaction, uterine prolapse, cystocele, rectocele, enterocele, diverticulitis, acute UTI among others. I discussed this patient's case with the attending physician Dr. Cavazos Will obtain basic laboratory studies, lactic acid level lipase level magnesium level urinalysis, will obtain CT and pelvis with contrast, will give 4 mg Zofran for nausea. CBC is notable for anemia with a hemoglobin of 10.6 and hematocrit 33.7 otherwise unremarkable, appears to be chronic and near baseline CMP is unremarkable UA is negative for nitrites negative for leukocyte esterase negative for hematuria Microscopic analysis is notable for no RBCs 3-5 WBCs 5-10 squamous epithelial cells trace bacteria. Roge Cavazos MD: I was consulted by the MIKEL, and we discussed the complexity of the problems being addressed. I approved the treatment and management plan for this patient's care in the emergency department, thus performing a substantive portion of the medical decision making. I agree with initial workup and imaging which was pending at time of transfer of care to the oncoming physician, Dr. Bai. I reviewed the patient's CT and pelvis with contrast along the corresponding radiologic report, constipation moderate sigmoid diverticulosis without evidence of diverticulitis. Discussed the results with the patient the bedside patient is in agreement the current discharge plan/treatment plan, will give patient enema here in the emergency department and send the patient home with magnesium citrate patient has other [id number]/bowel regimen present at home advised her to keep utilizing this regimen to elicit bowel movement. Patient voiced understanding and agreement with the current treatment plan/discharge plan patient need to follow-up with MARKETING SALES SUPERVISOR/general surgery for cystocele/rectocele. Strict ED return precautions were given. <Roge Cavazos MD - Last Filed: 09/07/25 16:08> Vital Signs: 09/07/25 13:37 09/07/25 13:49 09/07/25 14:00 Temperature 97.7 F Temperature Source Oral Pulse Rate 75 72 Pulse Rate [Right Radial] 75 Respiratory Rate 16 Blood Pressure 156/74 H 132/71 Blood Pressure [Right Arm] 156/74 H Blood Pressure Mean 98 Blood Pressure Mean [Right Arm] 101 Blood Pressure Source [Right Arm] Automatic Cuff Blood Pressure Position [Right Arm] Supine 02 Sat by Pulse Oximetry 95 95 96 Oxygen Delivery Method Room Air Room Air Room Air Lab Data Lab Results 09/07/25 13:29: Urine Color Yellow, Urine Appearance Clear, Urine pH 6.0, Ur Specific [place] 1.010, Urine Protein Negative, Urine Glucose (UA) Negative, Urine Ketones Negative, Urine Blood Negative, Urine Nitrate Negative, Urine Bilirubin Negative, Urine Urobilinogen 0.2, Ur Leukocyte Esterase Negative, Urine RBC None, Urine WBC 3-5, Ur Squamous Epith Cells 5-10, Urine Bacteria Trace 09/07/25 13:44: WBC 6.1, RBC 3.81 L, Hgb 10.6 L, Hct 33.7 L, MCV 88.5, MCH 27.8, MCHC 31.5 L, RDW 14.6, Plt Count 235, MPV 9.8, Neut % (Auto) 56.1, Lymph % (Auto) 31.5, [place] % (Auto) 8.0, Eos % (Auto) 3.4, Baso % (Auto) 0.7, Neut # (Auto) 3.4, Lymph # (Auto) 1.9, [place] # (Auto) 0.5, Eos # (Auto) 0.2, Baso # (Auto) 0.0, Sodium 138, Potassium 4.4, Chloride 100, Carbon Dioxide 26, Anion Gap 16.4 H, BUN 14, Creatinine 0.80, Estimated Creat Clear 57, Estimated GFR 68, Est GFR ( Amer) 82, Glucose 95, Lactate 1.2, Calcium 9.4, Magnesium 2.4 H , Total Bilirubin 0.5, AST 29, ALT 17, Alkaline Phosphatase 79, Total Protein 7.4, Albumin 4.6, Globulin 2.8, Albumin/Globulin Ratio 1.6, Lipase 38 Orders (Tests/Meds): ED MEDICATIONS Generic Name Dose Route Start Last Admin Trade Name Freq PRN Reason Stop Dose Admin Sodium Chloride 10 ml 09/07/25 14:42 09/07/25 14:43 Sodium Chloride 0.9% 10ml Syr (Rad Only) IV 10/07/25 14:41 10 ml NEEDED PRN Administration Maintain IV Site Discontinued Medications Generic Name Dose Route Start Last Admin Trade Name Genet PRN Reason Stop Dose Admin Iopamidol 75 ml 09/07/25 14:42 09/07/25 14:43 Iopamidol-370 (76%);100ml Bottle IV 09/07/25 14:43 75 ml ONCE ONE Administration Ondansetron HCl 4 mg 09/07/25 13:37 09/07/25 14:11 Ondansetron 4mg/2ml Vial IV 09/07/25 13:38 4 mg ONCE ONE Administration ORDERS Category Date Time Status CT abdomen pelvis w con Stat Cat Scan 09/07/25 13:36 Completed Complete Blood Count Auto Diff Stat Lab 09/07/25 13:44 Completed Comprehensive Metabolic Panel Stat Lab 09/07/25 13:44 Completed HIV Combo Stat Lab 09/07/25 14:02 Ordered Hepatitis C Ab Qual. W/ RFX Stat Lab 09/07/25 14:02 Ordered Lactic Acid Stat Lab 09/07/25 13:44 Completed Lipase Stat Lab 09/07/25 13:44 Completed Magnesium Stat Lab 09/07/25 13:44 Completed UA [Urinalysis and Microscopic] Stat Lab 09/07/25 13:29 Completed Medical Decision Narrative: 89-year-old female presents the emergency department with concern for rectal prolapse constipation abdominal pain and nausea, worse over the last 2 weeks, Differential diagnose include but not limited to, malignancy, bowel obstruction, constipation, fecal impaction, uterine prolapse, cystocele, rectocele, enterocele, diverticulitis, acute UTI among others. I discussed this patient's case with the attending physician Dr. Cavazos Will obtain basic laboratory studies, lactic acid level lipase level magnesium level urinalysis, will obtain CT and pelvis with contrast, will give 4 mg Zofran for nausea. CBC is notable for anemia with a hemoglobin of 10.6 and hematocrit 33.7 otherwise unremarkable, appears to be chronic and near baseline CMP is unremarkable UA is negative for nitrites negative for leukocyte esterase negative for hematuria Microscopic analysis is notable for no RBCs 3-5 WBCs 5-10 squamous epithelial cells trace bacteria. Roge Cavazos MD: I was consulted by the MIKEL, and we discussed the complexity of the problems being addressed. I approved the treatment and management plan for this patient's care in the emergency department, thus performing a substantive portion of the medical decision making. I agree with initial workup and imaging which was pending at time of transfer of care to the oncoming physician, Dr. Bai. I reviewed the patient's CT and pelvis with contrast along the corresponding radiologic report, constipation moderate sigmoid diverticulosis without evidence of diverticulitis. Roge Cavazos MD: I was consulted by the MIKEL, and we discussed the complexity of the problems being addressed. I approved the treatment and management plan for this patient's care in the emergency department, thus performing a substantive portion of the medical decision making. Critical Care <Roge Cavazos MD - Last Filed: 09/07/25 16:08> Critical Care Time Critical Care Time: No
[2025-09-07 14:01] LABS: Hematocrit 33.7 % (37.0-47.0); Hemoglobin 10.6 g/dL (12.2-16.2); Immature Granulocytes % 0.3 %; Mean Corpuscular HGB Conc 31.5 g/dL (31.8-35.4); Mean Corpuscular Hemoglobin 27.8 pg (27.0-31.2); Mean Corpuscular Volume 88.5 fl (81-99); Nucleated Red Blood Cells % 0 %; Platelet Count 235 K/mm3 (142-424); Red Blood Count 3.81 M/mm3 (4.20-5.40); Red Cell Distribution Width-SD 46.6 fL; White Blood Count 6.1 K/mm3 (4.8-10.8)
[2025-09-07] MEDS: ONDANSETRON 4MG/2ML VIAL 4 MG IV (14:11)
[2025-09-07 14:12] LABS: Alanine Aminotransferase 17 U/L (12-78); Albumin Level 4.6 g/dl (3.5-5.0); Albumin/Globulin Ratio 1.6 (1.1-1.8); Alkaline Phosphatase 79 U/L (38-126); Anion Gap 16.4 mEq/L (5-15); Aspartate Amino Transferase 29 U/L (14-36); Bilirubin,Total 0.5 mg/dl (0.2-1.3); Blood Urea Nitrogen 14 mg/dl (7-17); Calcium 9.4 mg/dl (8.4-10.2); Carbon Dioxide 26 mmol/L (22.0-30.0); Chloride 100 mmol/L (98-107); Creatinine Clearance Estimated 57 mL/min (50-200); Creatinine,Serum 0.80 mg/dl (0.52-1.04); Estimated Glomerular Filt Rate 68 ml/min (>60); GFR (African American) 82 ML/MIN (>60); Globulin 2.8 g/dL (1.3-3.2); Glucose 95 mg/dl (74-100); Lipase 38 U/L (23-300); Magnesium 2.4 mg/dl (1.6-2.3); Potassium 4.4 mmoL/L (3.5-5.1); Sodium 138 mmol/L (136-145); Total Protein,Serum 7.4 g/dl (6.3-8.2)
[2025-09-07 14:15] LABS: Bilirubin,Urine Negative (Negative); Color,Urine YELLOW (Yellow); Glucose,Urine (UA) Negative (Negative); Ketones,Urine Negative (Negative); Leukocyte Esterase,Urine Negative (Negative); PH,Urine 6.0 (5.0-8.5); Protein,Urine Negative (Negative); Specific Gravity, Urine 1.010 (1.005-1.030); Urobilinogen,Urine 0.2 EU/dl (0.2)
--- NOTE | 2025-09-07 14:37 | PC.NURSE ---
pt to CT via wheelchair
[2025-09-07] MEDS: SODIUM CHLORIDE 0.9% 10ML SYR (RAD ONLY) 10 ML IV (14:43)
[2025-09-07] MEDS: IOPAMIDOL-370 (76%);100ML BOTTLE 75 ML IV (14:43)
[2025-09-07 14:50] LABS: Bacteria,Urine Trace /lpf
[2025-09-07] MEDS: SODIUM PHOS/BIPHOSPHATE FLEET 133ML ENEMA 133 ML RC (16:19)
[2025-09-07 17:42] LABS: Hepatitis C Ab Qual. W/ RFX NEGATIVE (Negative)
== END 2025-09-07 16:37 | disposition home or self-care (01) ==
PROVIDERS: Physician Assistant; Emergency Provider Emergency Medicine; PCP Internal Medicine
DX: K59.00 Constipation, unspecified (principal)
CPT/HCPCS: 74177; 80053; 81001; 83605; 83690; 83735; 85025; 86803; 87389; 96374; 99284; J2405; Q9967